=== PATIENT | male | born 1960 | race Caucasian/White ===

== ENCOUNTER 2021-11-29 14:19 | Inpatient (IN) | payer OTHER ==
[2021-11-29] MEDS ORDERED: SODIUM CHLORIDE 0.9% 1,000 ML IV STA (14:40)
--- NOTE | 2021-11-29 15:04 | XR ---
EXAMINATION TYPE: XR chest 1V portable DATE OF EXAM: 11/29/2021 COMPARISON: NONE HISTORY: Weakness TECHNIQUE: Single frontal view of the chest is obtained. FINDINGS: Heart size normal and there is an elevated left hemidiaphragm. No overt failure or pneumot horax. Abnormal subsegmental changes at the left lung base. IMPRESSION: Left basilar compression atelectasis favored secondary to left hemidiaphragm elevation. Correlate clinically to exclude pneumonia.
--- NOTE | 2021-11-29 15:34 | ED ---
Dizziness HPI - General Chief Complaint: Dizziness Stated Complaint: Hypertension/Dizziness Time Seen by Provider: 11/29/21 14:36 Source: patient, EMS Mode of arrival: EMS Limitations: no limitations - History of Present Illness Initial Comments: Patient complains of lightheadedness. His symptoms are worse if he stands up. He is not complaining of any chest pain or pressure or tightness. He currently has no nausea or vomiting. He has no focal weakness. He has no neck pain or stiffness. He has no headache. He has taken no medicines for this. He wasn't doing anything when this began. - Related Data Allergies Allergy/AdvReac Type Severity Reaction Status Date / Time No Known Allergies Allergy Verified 11/29/21 14:37 Review of Systems ROS Statement: Those systems with pertinent positive or pertinent negative responses have been documented in the HPI. ROS Other: All systems not noted in ROS Statement are negative. Past Medical History Past Medical History: COPD, Hypertension, Prostate Disorder History of Any Multi-Drug Resistant Organisms: None Reported Past Surgical History: Hernia Repair Additional Past Surgical History / Comment(s): galladder Past Psychological History: Depression Smoking Status: Current every day smoker Past Alcohol Use History: None Reported Past Drug Use History: Marijuana General Exam Limitations: no limitations General appearance: alert, in no apparent distress Head exam: Present: atraumatic, normocephalic, normal inspection Eye exam: Present: normal appearance, PERRL, EOMI. Absent: scleral icterus, conjunctival injection, periorbital swelling ENT exam: Present: normal exam, mucous membranes moist Neck exam: Present: normal inspection. Absent: tenderness, meningismus, lymphadenopathy Respiratory exam: Present: normal lung sounds bilaterally. Absent: respiratory distress, wheezes, rales, rhonchi, stridor Cardiovascular Exam: Present: tachycardia, normal heart sounds. Absent: systolic murmur, diastolic murmur, rubs, gallop, clicks GI/Abdominal exam: Present: soft, normal bowel sounds. Absent: distended, tenderness, guarding, rebound, rigid Extremities exam: Present: normal inspection, full ROM, normal capillary refill. Absent: tenderness, pedal edema, joint swelling, calf tenderness Back exam: Present: normal inspection Neurological exam: Present: alert, oriented X3, CN II-XII intact Psychiatric exam: Present: normal affect, normal mood Skin exam: Present: warm, dry, intact, normal color. Absent: rash Course Vital Signs 11/29/21 11/29/21 11/29/21 14:23 15:48 16:00 Temperature 98.4 F Pulse Rate 97 117 H Respiratory 18 21 Rate Blood Pressure 100/67 90/61 O2 Sat by Pulse 100 95 96 Oximetry 11/29/21 11/29/21 17:00 18:00 Temperature Pulse Rate 93 115 H Respiratory 15 16 Rate Blood Pressure 111/74 104/77 O2 Sat by Pulse 95 95 Oximetry EKG Findings - EKG Comments: EKG Findings:: Twelve-lead EKG shows ventricular rate 107 bpm, no P waves, normal QRSs, no ST elevation or depression, interpreted by me as atrial fi brillation. Medical Decision Making - Medical Decision Making Patient presents with lightheadedness. He has what appears to be new onset atrial fibrillation. He will be admitted to the hospital. - Lab Data Result diagrams: 11/29/21 14:59 11/29/21 14:59 Lab Results 11/29/21 11/29/21 11/29/21 Range/Units 14:59 14:59 14:59 WBC 3.2 L (3.8-10.6) k/uL RBC 3.56 L (4.30-5.90) m/uL Hgb 9.9 L (13.0-17.5) gm/dL Hct 33.1 L (39.0-53.0) % MCV 92.8 (80.0-100.0) fL MCH 27.8 (25.0-35.0) pg MCHC 29.9 L (31.0-37.0) g/dL RDW 24.7 H (11.5-15.5) % Plt Count 271 (150-450) k/uL MPV 8.4 Neutrophils % (Manual) 54 % Lymphocytes % (Manual) 34 % Monocytes % (Manual) 9 % Eosinophils % (Manual) 1 % Basophils % (Manual) 2 % Neutrophils # (Manual) 1.73 (1.3-7.7) k/uL Lymphocytes # (Manual) 1.09 (1.0-4.8) k/uL Monocytes # (Manual) 0.29 (0-1.0) k/uL Eosinophils # (Manual) 0.03 (0-0.7) k/uL Basophils # (Manual) 0.06 (0-0.2) k/uL Nucleated RBCs 0 (0-0) /100 WBC Manual Slide Review Performed Polychromasia Present Hypochromasia Marked Anisocytosis Marked Microcytosis Slight Macrocytosis Slight Ovalocytes Present PT (9.0-12.0) sec INR (<1.2) APTT (22.0-30.0) sec Sodium 136 L (137-145) mmol/L Potassium 4.4 (3.5-5.1) mmol/L Chloride 106 (98-107) mmol/L Carbon Dioxide 25 (22-30) mmol/L Anion Gap 5 mmol/L BUN 12 (9-20) mg/dL Creatinine 0.90 (0.66-1.25) mg/dL Est GFR (CKD-EPI)AfAm >90 (>60 ml/min/1.73 sqM) Est GFR (CKD-EPI)NonAf >90 (>60 ml/min/1.73 sqM) Glucose 86 (74-99) mg/dL Calcium 8.5 (8.4-10.2) mg/dL Magnesium (1.6-2.3) mg/dL Total Bilirubin 0.1 L (0.2-1.3) mg/dL AST 20 (17-59) U/L ALT 11 (4-49) U/L Alkaline Phosphatase 57 (38-126) U/L Troponin I (0.000-0.034) ng/mL Total Protein 5.6 L (6.3-8.2) g/dL Albumin 3.5 (3.5-5.0) g/dL Urine Color Dark Yellow Urine Appearance Clear (Clear) Urine pH 6.0 (5.0-8.0) Ur Specific Mullins 1.035 (1.001-1.035) Urine Protein 1+ H (Negative) Ur Protein Confirm Not Reportable Urine Glucose (UA) Negative (Negative) Urine Ketones Trace H (Negative) Urine Blood Negative (Negative) Urine Nitrite Negative (Negative) Urine Bilirubin 1+ H (Negative) Ur Bilirubin Confirm Not Reportable Urine Urobilinogen 4.0 (<2.0) mg/dL Ur Leukocyte Esterase Small H (Negative) Urine RBC 1 (0-5) /hpf Urine WBC 3 (0-5) /hpf Ur Squamous Epith Cells 2 (0-4) /hpf Urine Bacteria Occasional H (None) /hpf Hyaline Casts 35 H (0-2) /lpf Urine Mucus Few H (None) /hpf 11/29/21 11/29/21 11/29/21 Range/Units 14:59 16:54 16:54 WBC (3.8-10.6) k/uL RBC (4.30-5.90) m/uL Hgb (13.0-17.5) gm/dL Hct (39.0-53.0) % MCV (80.0-100.0) fL MCH (25.0-35.0) pg MCHC (31.0-37.0) g/dL RDW (11.5-15.5) % Plt Count (150-450) k/uL MPV Neutrophils % (Manual) % Lymphocytes % (Manual) % Monocytes % (Manual) % Eosinophils % (Manual) % Basophils % (Manual) % Neutrophils # (Manual) (1.3-7.7) k/uL Lymphocytes # (Manual) (1.0-4.8) k/uL Monocytes # (Manual) (0-1.0) k/uL Eosinophils # (Manual) (0-0.7) k/uL Basophils # (Manual) (0-0.2) k/uL Nucleated RBCs (0-0) /100 WBC Manual Slide Review Polychromasia Hypochromasia Anisocytosis Microcytosis Macrocytosis Ovalocytes PT (9.0-12.0) sec INR (<1.2) APTT (22.0-30.0) sec Sodium (137-145) mmol/L Potassium (3.5-5.1) mmol/L Chloride (98-107) mmol/L Carbon Dioxide (22-30) mmol/L Anion Gap mmol/L BUN (9-20) mg/dL Creatinine (0.66-1.25) mg/dL Est GFR (CKD-EPI)AfAm (>60 ml/min/1.73 sqM) Est GFR (CKD-EPI)NonAf (>60 ml/min/1.73 sqM) Glucose (74-99) mg/dL Calcium (8.4-10.2) mg/dL Magnesium 1.9 (1.6-2.3) mg/dL Total Bilirubin (0.2-1.3) mg/dL AST (17-59) U/L ALT (4-49) U/L Alkaline Phosphatase (38-126) U/L Troponin I <0.012 <0.012 (0.000-0.034) ng/mL Total Protein (6.3-8.2) g/dL Albumin (3.5-5.0) g/dL Urine Color Urine Appearance (Clear) Urine pH (5.0-8.0) Ur Specific Mullins (1.001-1.035) Urine Protein (Negative) Ur Protein Confirm Urine Glucose (UA) (Negative) Urine Ketones (Negative) Urine Blood (Negative) Urine Nitrite (Negative) Urine Bilirubin (Negative) Ur Bilirubin Confirm Urine Urobilinogen (<2.0) mg/dL Ur Leukocyte Esterase (Negative) Urine RBC (0-5) /hpf Urine WBC (0-5) /hpf Ur Squamous Epith Cells (0-4) /hpf Urine Bacteria (None) /hpf Hyaline Casts (0-2) /lpf Urine Mucus (None) /hpf // Range/Units 16:54 WBC (3.8-10.6) k/uL RBC (4.30-5.90) m/uL Hgb (13.0-17.5) gm/dL Hct (39.0-53.0) % MCV (80.0-100.0) fL MCH (25.0-35.0) pg MCHC (31.0-37.0) g/dL RDW (11.5-15.5) % Plt Count (150-450) k/uL MPV Neutrophils % (Manual) % Lymphocytes % (Manual) % Monocytes % (Manual) % Eosinophils % (Manual) % Basophils % (Manual) % Neutrophils # (Manual) (1.3-7.7) k/uL Lymphocytes # (Manual) (1.0-4.8) k/uL Monocytes # (Manual) (0-1.0) k/uL Eosinophils # (Manual) (0-0.7) k/uL Basophils # (Manual) (0-0.2) k/uL Nucleated RBCs (0-0) /100 WBC Manual Slide Review Polychromasia Hypochromasia Anisocytosis Microcytosis Macrocytosis Ovalocytes PT 10.1 (9.0-12.0) sec INR 0.9 (<1.2) APTT 23.4 (22.0-30.0) sec Sodium (137-145) mmol/L Potassium (3.5-5.1) mmol/L Chloride (98-107) mmol/L Carbon Dioxide (22-30) mmol/L Anion Gap mmol/L BUN (9-20) mg/dL Creatinine (0.66-1.25) mg/dL Est GFR (CKD-EPI)AfAm (>60 ml/min/1.73 sqM) Est GFR (CKD-EPI)NonAf (>60 ml/min/1.73 sqM) Glucose (74-99) mg/dL Calcium (8.4-10.2) mg/dL Magnesium (1.6-2.3) mg/dL Total Bilirubin (0.2-1.3) mg/dL AST (17-59) U/L ALT (4-49) U/L Alkaline Phosphatase (38-126) U/L Troponin I (0.000-0.034) ng/mL Total Protein (6.3-8.2) g/dL Albumin (3.5-5.0) g/dL Urine Color Urine Appearance (Clear) Urine pH (5.0-8.0) Ur Specific Mullins (1.001-1.035) Urine Protein (Negative) Ur Protein Confirm Urine Glucose (UA) (Negative) Urine Ketones (Negative) Urine Blood (Negative) Urine Nitrite (Negative) Urine Bilirubin (Negative) Ur Bilirubin Confirm Urine Urobilinogen (<2.0) mg/dL Ur Leukocyte Esterase (Negative) Urine RBC (0-5) /hpf Urine WBC (0-5) /hpf Ur Squamous Epith Cells (0-4) /hpf Urine Bacteria (None) /hpf Hyaline Casts (0-2) /lpf Urine Mucus (None) /hpf Disposition Clinical Impression: Syncope, Atrial fibrillation Disposition: ADMITTED IP TO THIS HOSP Condition: Fair Is patient prescribed a controlled substance at d/c from ED?: No Referrals: Nonstaff,Physician [Primary Care Provider] - 1-2 days
[2021-11-29 15:44] LABS: ALT 11 U/L (4-49); AST 20 U/L (17-59); African American GFR (CKD) >90 (>60 ml/min/1.73 sqM); Albumin 3.5 g/dL (3.5-5.0); Alkaline Phosphatase 57 U/L (38-126); Anion Gap 5 mmol/L; Blood Urea Nitrogen 12 mg/dL (9-20); Calcium 8.5 mg/dL (8.4-10.2); Carbon Dioxide 25 mmol/L (22-30); Chloride 106 mmol/L (98-107); Glucose 86 mg/dL (74-99); Non-African American GFR(CKD) >90 (>60 ml/min/1.73 sqM); Potassium 4.4 mmol/L (3.5-5.1); Sodium 136 mmol/L (137-145); Total Bilirubin 0.1 mg/dL (0.2-1.3); Total Protein 5.6 g/dL (6.3-8.2)
[2021-11-29 16:19] LABS: Bacteria,Urine Occasional /hpf; Hyaline Casts,Urine 35 /lpf (0-2); Mucus,Urine Few /hpf; RBC,Urine 1 /hpf (0-5); Squamous Epithelial Cell,Urine 2 /hpf (0-4); WBC,Urine 3 /hpf (0-5)
[2021-11-29 16:24] LABS: Anisocytosis Marked; HCT 33.1 % (39.0-53.0); HGB 9.9 gm/dL (13.0-17.5); Hypochromasia Marked; MCH 27.8 pg (25.0-35.0); MCHC 29.9 g/dL (31.0-37.0); MCV 92.8 fL (80.0-100.0); Macrocytosis Slight; Mean Platelet Volume 8.4; Microcytosis Slight; Platelet Count 271 k/uL (150-450); RBC 3.56 m/uL (4.30-5.90); RDW 24.7 % (11.5-15.5); WBC 3.2 k/uL (3.8-10.6)
[2021-11-29 17:14] LABS: Appearance,Urine Clear (Clear); Bilirubin,Urine 1+ (Negative); Blood,Urine Negative (Negative); Color,Urine Dark Yellow; Glucose,Urine (UA) Negative (Negative); Ketones,Urine Trace (Negative); Leukocyte Esterase,Urine Small (Negative); Nitrite,Urine Negative (Negative); Protein,Urine 1+ (Negative); Specific Gravity,Urine 1.035 (1.001-1.035)
[2021-11-29 17:25] LABS: Basophils # (M) 0.06 k/uL (0-0.2); Eosinophils # (M) 0.03 k/uL (0-0.7); Lymphocytes # (M) 1.09 k/uL (1.0-4.8); Monocytes # (M) 0.29 k/uL (0-1.0); Neutrophils # (M) 1.73 k/uL (1.3-7.7); Neutrophils % (M) 54 %; Nucleated Red Blood Cells 0 /100 WBC (0-0); Total Cells Counted 100
[2021-11-29 17:26] LABS: INR 0.9 (<1.2); Partial Thromboplastin Time 23.4 sec (22.0-30.0); Prothrombin Time 10.1 sec (9.0-12.0)
[2021-11-29 17:26] LABS: Ovalocytes Present; Polychromasia Present
[2021-11-29] MEDS ORDERED: LIDOCAINE 5% PATCH TOPICAL STA (18:07)
[2021-11-29] MEDS ORDERED: TEMAZEPAM 15 MG CAP PO PRN (19:04)
[2021-11-29] MEDS ORDERED: MAG HYDROX/AL HYDROX/SIMETH 30 ML CUP PO PRN (19:04)
[2021-11-29] MEDS ORDERED: NALOXONE 0.4 MG/ML 1 ML VIAL IV PRN (19:04)
[2021-11-29] MEDS ORDERED: ONDANSETRON 4 MG/2 ML VIAL IVP PRN (19:04)
[2021-11-29] MEDS ORDERED: LORazepam 0.5 MG TAB PO PRN (19:04)
[2021-11-29] MEDS ORDERED: HEPARIN SODIUM 1,000 UN/ML (10ML VL) IV ONE (23:20)
[2021-11-29] MEDS ORDERED: HEPARIN SODIUM 1,000 UN/ML (10ML VL) IV PRN (23:20)
[2021-11-29] MEDS ORDERED: HEPARIN SOD,PORK IN 0.45% NACL 25,000 UNIT in 0.45% NACL 1 250ML.BAG IV SCH (23:30)
[2021-11-29] MEDS ORDERED: DILTIAZEM 125 MG in SODIUM CHLORIDE 0.9% 100 ML IV SCH (23:45)
[2021-11-29] MEDS ORDERED: DILTIAZEM 5 MG/ML 5 ML VIAL IVP STA (23:45)
--- NOTE | 2021-11-29 23:50 | P.HPIM ---
History of Present Illness H&P Date: 11/29/21 The patient is a 61-year-old male with a PMH of hypertension, hyperlipidemia, BPH, and EtOH abuse who was sent to the emergency room from [facility] for near syncope and palpitations. The patient reports that he has been admitted to [facility] for nearly 10 days for alcohol detox. He reports doing well and in his usual state of health until lunch this afternoon when he suddenly developed applications and lightheadedness. He reports being taken to the facility's RN who checked his blood pressure which was noted to be very low. He was subsequently brought to the emergency room. He reports that he never lost consciousness. Denied experiencing chest discomfort, nausea, vomiting, shortn ess of breath, diaphoresis, abdominal pain, diarrhea. EKG in the emergency room revealed A. fib with RVR at 107 bpm with chest x-ray showing left basilar atelectasis. Laboratory evaluation was remarkable for WBC count 3.2, hemoglobin 9.9, troponin less than 0.012. The patient denies prior history of A. fib or any other arrhythmias. He also denies any additional heart disease history. Review of systems: Pertinent positives and negatives as discussed in HPI, a complete review of systems was performed and all other systems are negative. Physical examination: General: non toxic, no distress, appears at stated age, overweight Derm: no unusual rashes/lesions, warm Head: atraumatic, normocephalic, symmetric Eyes: EOMI, no lid lag, anicteric sclera, pupils equal round reactive to light ENT: Nose and ears atraumatic Neck: No cervical lymphadenopathy, trachea midline, supple Mouth: no lip lesion, mucus membranes moist Cardiovascular: Irregularly irregular, no murmur, positive dorsalis pedis pulse bilateral, 2+ bilateral lower extremity pitting edema Lungs: CTA bilateral, no rhonchi, no rales, no accessory muscle use Abdominal: soft, nontender to palpation, no guarding Ext: muscle strength 5 out of 5 in all 4 extremities grossly, no gross muscle atrophy, no contractures, Neuro: CN II-XI grossly intact, no gross focal neuro deficits Psych: Alert, oriented, appropriate affect Assessment/plan Near syncope, likely secondary to newly diagnosed A. fib with RVR -Started low intensity heparin infusion -Cardiology consulted -Cardiac monitoring -Cardizem infusion -Echocardiogram Bicytopenia, likely secondary to ongoing EtOH abuse -Monitor for now with no baseline available for comparison DVT prophylaxis -Heparin infusion The patient is admitted with an anticipated less than 2 midnight stay for evaluation of A. fib. CODE STATUS: Full Code Discussed with: Patient Anticipated discharge date: In a.m. Anticipated discharge place: [facility] Past Medical History Past Medical History: COPD, Hypertension, Prostate Disorder History of Any Multi-Drug Resistant Organisms: None Reported Past Surgical History: Hernia Repair Additional Past Surgical History / Comment(s): galladder Past Psychological History: Depression Smoking Status: Current every day smoker Past Alcohol Use History: None Reported Past Drug Use History: Marijuana - Past Family History Father Family Medical History: COPD Medications and Allergies Home Medications Medication Instructions Recorded Confirmed Type Acetaminophen [Tylenol 8 Hour] 650 mg PO Q4H PRN 11/29/21 11/29/21 History Aspirin 81 mg PO DAILY 11/29/21 11/29/21 History Atorvastatin [Lipitor] 20 mg PO DAILY 11/29/21 11/29/21 History Calcium, Magnesium, Zinc, With 1 tab PO TID PRN 11/29/21 11/29/21 History Vitamin D DULoxetine HCL [Cymbalta] 30 mg PO DAILY 11/29/21 11/29/21 History Ibuprofen [Motrin Ib] 600 mg PO Q6H PRN 11/29/21 11/29/21 History Loperamide HCl [Imodium A-D] 4 mg PO QID PRN 11/29/21 11/29/21 History Metoprolol Tartrate [Lopressor] 25 mg PO BID 11/29/21 11/29/21 History Multivitamins, Thera [Multivitamin 1 tab PO DAILY 11/29/21 11/29/21 History (formulary)] Nitroglycerin Sl Tabs [Nitrostat] 0.4 mg SUBLINGUAL Q5M PRN 11/29/21 11/29/21 History Omeprazole 40 mg PO DAILY 11/29/21 11/29/21 History Tamsulosin HCl [Flomax] 0.4 mg PO DAILY 11/29/21 11/29/21 History Thiamine [Vitamin B-1] 100 mg PO DAILY 11/29/21 11/29/21 History Zofran (Unknown Dose) 1 dose PO Q6H PRN 11/29/21 11/29/21 History amLODIPine [Norvasc] 5 mg PO DAILY 11/29/21 11/29/21 History lisinopriL [Zestril] 20 mg PO DAILY 11/29/21 11/29/21 History Allergies Allergy/AdvReac Type Severity Reaction Status Date / Time No Known Allergies Allergy Verified 11/29/21 20:06 Physical Exam Vitals: Vital Signs Temp Pulse Resp BP Pulse Ox 11/29/21 20:55 130 H 18 97 11/29/21 18:00 115 H 16 104/77 95 11/29/21 17:00 93 15 111/74 95 11/29/21 16:00 117 H 21 90/61 96 11/29/21 15:48 95 11/29/21 14:23 98.4 F 97 18 100/67 100 Intake and Output 11/29/21 11/29/21 11/30/21 14:59 22:59 06:59 Other: Weight 96.615 kg Results CBC & Chem 7: 11/29/21 14:59 11/29/21 14:59 Labs: Abnormal Lab Results - Last 24 Hours (Table) 11/29/21 11/29/21 11/29/21 Range/Units 14:59 14:59 14:59 WBC 3.2 L (3.8-10.6) k/uL RBC 3.56 L (4.30-5.90) m/uL Hgb 9.9 L (13.0-17.5) gm/dL Hct 33.1 L (39.0-53.0) % MCHC 29.9 L (31.0-37.0) g/dL RDW 24.7 H (11.5-15.5) % Sodium 136 L (137-145) mmol/L Total Bilirubin 0.1 L (0.2-1.3) mg/dL Total Protein 5.6 L (6.3-8.2) g/dL Urine Protein 1+ H (Negative) Urine Ketones Trace H (Negative) Urine Bilirubin 1+ H (Negative) Ur Leukocyte Esterase Small H (Negative) Urine Bacteria Occasional H (None) /hpf Hyaline Casts 35 H (0-2) /lpf Urine Mucus Few H (None) /hpf
[2021-11-30] MEDS ORDERED: MORPHINE SULFATE 4 MG/ML SYRINGE IVP STA (03:39)
[2021-11-30] MEDS ORDERED: MORPHINE SULFATE 4 MG/ML SYRINGE IV PRN (03:39)
[2021-11-30 06:53] LABS: Anisocytosis Marked; Basophils % (A) 1 %; Eosinophils # (A) 0.1 k/uL (0-0.7); Eosinophils % (A) 3 %; HCT 34.3 % (39.0-53.0); HGB 10.1 gm/dL (13.0-17.5); Hypochromasia Marked; Lymphocytes # (A) 1.3 k/uL (1.0-4.8); Lymphocytes % (A) 37 %; MCH 27.8 pg (25.0-35.0); MCHC 29.6 g/dL (31.0-37.0); MCV 94.2 fL (80.0-100.0); Macrocytosis Moderate; Mean Platelet Volume 8.1; Microcytosis Slight; Monocytes # (A) 0.2 k/uL (0-1.0); Monocytes % (A) 6 %; Neutrophils # (A) 1.8 k/uL (1.3-7.7); Neutrophils % (A) 50 %; Platelet Count 242 k/uL (150-450); RBC 3.64 m/uL (4.30-5.90); RDW 24.3 % (11.5-15.5); WBC 3.6 k/uL (3.8-10.6)
[2021-11-30 07:20] LABS: INR 0.9 (<1.2); Prothrombin Time 10.3 sec (9.0-12.0)
[2021-11-30 07:21] LABS: Partial Thromboplastin Time 33.2 sec (22.0-30.0)
[2021-11-30] MEDS ORDERED: METOPROLOL TARTRATE 25 MG TAB PO SCH (09:00)
[2021-11-30] MEDS ORDERED: amLODIPine 5 MG TAB PO SCH (09:00)
[2021-11-30] MEDS ORDERED: lisinopriL 20 MG TAB PO SCH (09:00)
[2021-11-30] MEDS: TAMSULOSIN 0.4 MG CAP.ER.24H PO SCH (09:30)
[2021-11-30] MEDS: THIAMINE 100 MG TAB PO SCH ×2 (09:30→09:31)
[2021-11-30] MEDS: DULoxetine HCL 30 MG CAPSULE.DR PO SCH (09:31)
[2021-11-30] MEDS: ASPIRIN 81 MG PO SCH (09:31)
[2021-11-30] MEDS: ATORVASTATIN 20 MG TAB PO SCH (09:31)
[2021-11-30] MEDS: MULTIVITAMINS, THERA 1 EACH TAB PO SCH (09:32)
--- NOTE | 2021-11-30 11:39 | CA ---
Transthoracic Echo Report Name: Anthony Robles Age: 61 Gender: M : 1960 Exam Date: 11/30/2021 08:19 Exam Location: [facility] Ht (in): 72 Wt (lb): 213 Ordering Physician: Stephani Blanco MD Attending/Referring Phys: Transfer Specialist Miguelina Paz RDCS Procedure CPT: Indications: afib Cardiac Hx: Technical Quality: Good Contrast 1: Lumason Total Dose (mL): 3 Contrast 2: Total Dose (mL): MEASUREMENTS (Male / Female) Normal Values 2D ECHO LV Diastolic Diameter PLAX 4.5 cm 4.2 - 5.9 / 3.9 - 5.3 cm LV Systolic Diameter PLAX 3.9 cm IVS Diastolic Thickness 1.1 cm 0.6 - 1.0 / 0.6 - 0.9 cm LVPW Diastolic Thickness 1.7 cm 0.6 - 1.0 / 0.6 - 0.9 cm LV Relative Wall Thickness 0.6 RV Internal Dim ED PLAX 3.5 cm LA Systolic Diameter LX 4.2 cm 3.0 - 4.0 / 2.7 - 3.8 cm M-MODE Aortic Root Diameter MM 3.9 cm LA Systolic Diameter MM 4.3 cm LA Ao Ratio MM 1.1 MV E Point Septal Separation 0.7 cm AV Cusp Separation MM 2.1 cm FINDINGS Left Ventricle Normal Left ventricular size, wall thickness, systolic function with no obvious regional wall motion abnormalities. Left ventricular ejection fraction is estimated at 50-50%. Right Ventricle Normal right ventricular size and function. Right Atrium Normal right atrial size. Left Atrium Mildly increased left atrial diameter. Mitral Valve Structurally normal mitral valve. Mild mitral regurgitation. Aortic Valve Trileaflet aortic valve. Tricuspid Valve Structurally normal tricuspid valve. Mild tricuspid regurgitation. Pulmonic Valve Structurally normal pulmonic valve. Pericardium Normal pericardium. Aorta Normal size aortic root and proximal ascending aorta. CONCLUSIONS Normal LV size and systolic function Previewed by: Dr. Sean Mcpherson MD (Electronically Signed) Final Date: 30 November 2021 11:38
[2021-11-30] MEDS: HYDROmorphone 1 MG/ML 1 ML SYRINGE IVP PRN ×2 (11:41→16:39)
--- NOTE | 2021-11-30 13:14 | P.PN ---
Subjective Progress Note Date: 11/30/21 Hospital course: Patient is a very pleasant 61-year-old male with a past medical history of hypertension, hyperlipidemia, BPH, and EtOH abuse. Patient presented to the emergency department with a chief complaint of dizziness/lightheadedness and near syncopal episode while at [place]. patient reports he is currently is [place] secondary to EtOH abuse and states last alcoholic drink was 12 days ago. Upon arrival patient was found to be in new onset atrial fibrillation with RVR in 130's-140's. EKG was completed and revealed atrial fibrillation with RVR at 107 bpm. Chest x-ray negative for acute cardiopulmonary process revealing left basilar compression atelectasis favored to be secondary to hemidiaphragm elevation.CBC leukopenia with WBC count of 3.2, and normocytic normochromic anemia with hemoglobin of 9.9. Troponin was negative at less than 0.0124 draws. TSH was normal findings at 1.670. Urinalysis was negative for infection. Patient was started on heparin infusion Physical exam: Patient seen and fully evaluated at bedside this morning. Patient remains in atrial fibrillation currently rate is controlled ranging from 70s to 110's. patient otherwise denies having any complaints at this time reporting dizziness/lightheadedness has resolved and he denies having any chest pain, palpitations, shortness of breath, or experiencing any numbness/tinglin g/weakness in his extremities. Morning labs reviewed showing no significant changes or abnormalities. Vital signs reviewed and stable. General: Nontoxic, no distress and appears stated age. Derm: Skin warm and dry, normal coloration for ethnicity. Head: Atraumatic, normocephalic and symmetric. Eyes: EOMs intact, no lid lag, and anicteric sclera Mouth: no lip lesions, mucus membranes moist Cardiovascular: regular rate and rhythm with normal S1S2, no murmur, positive posterior tibial pulses bilaterally, and cap refill < 2 seconds. Lungs: Respirations even, regular, and unlabored on room air. Lungs CTA bilaterally, no rhonchi, no rales, no wheezing, and no accessory muscle usage. Abdominal: soft, nontender to palpation, no guarding, no appreciable organomegaly Ext: ROM intact. No gross muscle atrophy, no edema, no contractures Neuro: Speech clear, face symmetrical and CN II-XII grossly intact with no noted focal neuro deficits Psych: Alert and oriented to person, place, time, and situation. Appropriate and pleasant affect. Assessment and Plan of Care: Dizziness/lightheadedness with reports of near syncopal episode, likely secondary to newly diagnosed A. fib with RVR -Started low intensity heparin infusion -Cardiology consulted -Cardiac monitoring -Cardizem infusion -Echocardiogram Bicytopenia, likely secondary to ongoing EtOH abuse -Monitor for now with no baseline available for comparison Hypertension monitor vital signs and continue daily medication regimen with amlodipine, lisinopril, and metoprolol. Hyperlipidemia Continue daily medication regimen with atorvastatin. BPH Continue daily medication regimen with Flomax CODE STATUS:full code DVT prophylaxis: heparin infusion Discussed with: patient and RN Anticipated discharge date: likely tomorrow Anticipated discharge place: return to [facility] A total of 33 minutes was spent on the care of this complex patient more than 50% of the time was spent in counseling and care coordination. Objective - Vital Signs Vital signs: Vital Signs Temp 98.4 F 11/29/21 14:23 Pulse 73 11/30/21 11:44 Resp 16 11/30/21 11:44 BP 110/68 11/30/21 11:44 Pulse Ox 99 11/30/21 11:44 FiO2 Intake & Output 11/29/21 11/30/21 11/30/21 18:59 06:59 18:59 Weight 96.615 kg - Labs CBC & Chem 7: 11/30/21 06:13 11/29/21 14:59 Labs: Abnormal Lab Results - Last 24 Hours (Table) 11/29/21 11/29/21 11/29/21 Range/Units 14:59 14:59 14:59 WBC 3.2 L (3.8-10.6) k/uL RBC 3.56 L (4.30-5.90) m/uL Hgb 9.9 L (13.0-17.5) gm/dL Hct 33.1 L (39.0-53.0) % MCHC 29.9 L (31.0-37.0) g/dL RDW 24.7 H (11.5-15.5) % APTT (22.0-30.0) sec Sodium 136 L (137-145) mmol/L Total Bilirubin 0.1 L (0.2-1.3) mg/dL Total Protein 5.6 L (6.3-8.2) g/dL Urine Protein 1+ H (Negative) Urine Ketones Trace H (Negative) Urine Bilirubin 1+ H (Negative) Ur Leukocyte Esterase Small H (Negative) Urine Bacteria Occasional H (None) /hpf Hyaline Casts 35 H (0-2) /lpf Urine Mucus Few H (None) /hpf 11/30/21 11/30/21 Range/Units 06:13 06:13 WBC 3.6 L (3.8-10.6) k/uL RBC 3.64 L (4.30-5.90) m/uL Hgb 10.1 L (13.0-17.5) gm/dL Hct 34.3 L (39.0-53.0) % MCHC 29.6 L (31.0-37.0) g/dL RDW 24.3 H (11.5-15.5) % APTT 33.2 H (22.0-30.0) sec Sodium (137-145) mmol/L Total Bilirubin (0.2-1.3) mg/dL Total Protein (6.3-8.2) g/dL Urine Protein (Negative) Urine Ketones (Negative) Urine Bilirubin (Negative) Ur Leukocyte Esterase (Negative) Urine Bacteria (None) /hpf Hyaline Casts (0-2) /lpf Urine Mucus (None) /hpf
--- NOTE | 2021-11-30 14:02 | P.CRDCN ---
History of Present Illness Consult date: 11/30/21 History of present illness: HISTORY OF PRESENT ILLNESS: This is a 61-year-old male with a past medical history significant for hypertension, hyperlipidemia, BPH, and alcohol abuse. 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 We have been asked to see the patient in consultation for atrial fibrillation. Patient examined at the bedside in the emergency room. The patient is currently at [place] for alcohol abuse. He was brought to the ospital secondary to palpitations and dizziness. The patient was found to be in A. fib with RVR. The patient denies a history of atrial fibrillation. The patient was started on IV heparin and IV Cardizem. * EKG reveals atrial fibrillation with mild RVR * Chest xray left basilar compression atelectasis favored secondary to left hemidiaphragm elevation. Correlate clinically to exclude pneumonia. * Laboratory data: WBC 3.6. Hemoglobin 10.1. Platelet count 242. Sodium 136. Potassium 4.4. BUN 12. Creatinine 0.90. Troponin negative 4. TSH 1.670. * Current home cardiac medications include metoprolol tartrate 25 mg twice a day, lisinopril 20 mg daily, aspirin 81 mg daily, Lipitor 20 mg daily, amlodipine 5 mg daily * Echocardiogram completed revealing ejection fraction 50-55%, mild MR, mild TR REVIEW OF SYSTEMS: At the time of my exam: CONSTITUTIONAL: Denies fever or chills. HEENT: Denies blurred vision, vision changes, or eye pain. Denies hemoptysis CARDIOVASCULAR: Denies chest pain. Denies orthopnea. Denies PND. Denies palpitations RESPIRATORY: Denies shortness of breath. GASTROINTESTINAL: Denies abdominal pain. Denies nausea or vomiting. HEMATOLOGIC: Denies bleeding disorders. GENITOURINARY: Denies any blood in urine. SKIN: Denies pruitis. Denies rash. PHYSICAL EXAM: VITAL SIGNS: Reviewed. GENERAL: Well-developed in no acute distress. HEENT: Head is normocephalic. Pupils are equal, round. Sclerae anicteric. Mucous membranes of the mouth are moist. Neck supple. No JVD or thyromegaly LUNGS: Respirations even and unlabored. Lungs essentially clear to auscultation bilaterally. HEART: Irregular rate and rhythm. S1 and S2 heard. ABDOMEN: Soft. Nondistended. Nontender. EXTREMITIES: Normal range of motion. No clubbing or cyanosis. Peripheral pulses intact. Trace lower extremity edema NEUROLOGIC: Awake and alert. Oriented x 3. ASSESSMENT: Palpitations New onset atrial fibrillation with RVR Hypertension Hyperlipidemia History of alcohol abuse PLAN: 2-D echo obtained and reviewed TSH within normal limits Discontinue IV Cardizem Resume home cardiac medications Increase metoprolol to 25 mg twice a day Discontinue IV heparin Begin Eliquis 5 mg twice a day Further recommendations pending patient's course Nurse practitioner note has been reviewed by physician. Signing provider agrees with the documented findings, assessment, and plan of care. Past Medical History Past Medical History: COPD, Hypertension, Prostate Disorder History of Any Multi-Drug Resistant Organisms: None Reported Past Surgical History: Hernia Repair Additional Past Surgical History / Comment(s): galladder Past Psychological History: Depression Smoking Status: Current every day smoker Past Alcohol Use History: None Reported Past Drug Use History: Marijuana - Past Family History Father Family Medical History: COPD Medications and Allergies Home Medications Medication Instructions Recorded Confirmed Type Acetaminophen [Tylenol 8 Hour] 650 mg PO Q4H PRN 11/29/21 11/29/21 History Aspirin 81 mg PO DAILY 11/29/21 11/29/21 History Atorvastatin [Lipitor] 20 mg PO DAILY 11/29/21 11/29/21 History Calcium, Magnesium, Zinc, With 1 tab PO TID PRN 11/29/21 11/29/21 History Vitamin D DULoxetine HCL [Cymbalta] 30 mg PO DAILY 11/29/21 11/29/21 History Ibuprofen [Motrin Ib] 600 mg PO Q6H PRN 11/29/21 11/29/21 History Loperamide HCl [Imodium A-D] 4 mg PO QID PRN 11/29/21 11/29/21 History Metoprolol Tartrate [Lopressor] 25 mg PO BID 11/29/21 11/29/21 History Multivitamins, Thera [Multivitamin 1 tab PO DAILY 11/29/21 11/29/21 History (formulary)] Nitroglycerin Sl Tabs [Nitrostat] 0.4 mg SUBLINGUAL Q5M PRN 11/29/21 11/29/21 History Omeprazole 40 mg PO DAILY 11/29/21 11/29/21 History Tamsulosin HCl [Flomax] 0.4 mg PO DAILY 11/29/21 11/29/21 History Thiamine [Vitamin B-1] 100 mg PO DAILY 11/29/21 11/29/21 History Zofran (Unknown Dose) 1 dose PO Q6H PRN 11/29/21 11/29/21 History amLODIPine [Norvasc] 5 mg PO DAILY 11/29/21 11/29/21 History lisinopriL [Zestril] 20 mg PO DAILY 11/29/21 11/29/21 History Allergies Allergy/AdvReac Type Severity Reaction Status Date / Time No Known Allergies Allergy Verified 11/29/21 20:06 Physical Exam Vitals: Vital Signs Temp Pulse Resp BP Pulse Ox 11/30/21 11:44 73 16 110/68 99 11/30/21 02:00 93 11/29/21 20:55 130 H 18 97 11/29/21 18:00 115 H 16 104/77 95 11/29/21 17:00 93 15 111/74 95 11/29/21 16:00 117 H 21 90/61 96 11/29/21 15:48 95 11/29/21 14:23 98.4 F 97 18 100/67 100 Results 11/30/21 06:13 11/29/21 14:59 Cardiac Enzymes 11/29/21 11/29/21 11/29/21 Range/Units 14:59 14:59 16:54 AST 20 (17-59) U/L Troponin I <0.012 <0.012 (0.000-0.034) ng/mL 11/29/21 11/29/21 Range/Units 20:05 21:53 AST (17-59) U/L Troponin I <0.012 <0.012 (0.000-0.034) ng/mL Coagulation 11/29/21 11/30/21 Range/Units 16:54 06:13 PT 10.1 10.3 (9.0-12.0) sec APTT 23.4 33.2 H (22.0-30.0) sec CBC 11/29/21 11/30/21 Range/Units 14:59 06:13 WBC 3.2 L 3.6 L (3.8-10.6) k/uL RBC 3.56 L 3.64 L (4.30-5.90) m/uL Hgb 9.9 L 10.1 L (13.0-17.5) gm/dL Hct 33.1 L 34.3 L (39.0-53.0) % Plt Count 271 242 (150-450) k/uL Comprehensive Metabolic Panel 11/29/21 Range/Units 14:59 Sodium 136 L (137-145) mmol/L Potassium 4.4 (3.5-5.1) mmol/L Chloride 106 (98-107) mmol/L Carbon Dioxide 25 (22-30) mmol/L BUN 12 (9-20) mg/dL Creatinine 0.90 (0.66-1.25) mg/dL Glucose 86 (74-99) mg/dL Calcium 8.5 (8.4-10.2) mg/dL AST 20 (17-59) U/L ALT 11 (4-49) U/L Alkaline Phosphatase 57 (38-126) U/L Total Protein 5.6 L (6.3-8.2) g/dL Albumin 3.5 (3.5-5.0) g/dL Current Medications Generic Name Dose Route Start Last Admin Trade Name Freq PRN Reason Stop Dose Admin Al Hydroxide/Mg Hydroxide 15 ml 11/29/21 19:04 Mag Hydrox/Al Hydrox/Simeth 30 Ml Cup PO Q6HR PRN Indigestion Amlodipine Besylate 5 mg 11/30/21 09:00 11/30/21 09:31 Amlodipine 5 Mg Tab PO 5 mg DAILY MERCEDES Administration Aspirin 81 mg 11/30/21 09:00 11/30/21 09:31 Aspirin 81 Mg PO 81 mg DAILY MERCEDES Administration Atorvastatin Calcium 20 mg 11/30/21 09:00 11/30/21 09:31 Atorvastatin 20 Mg Tab PO 20 mg DAILY MERCEDES Administration Duloxetine HCl 30 mg 11/30/21 09:00 11/30/21 09:31 Duloxetine Hcl 30 Mg Capsule. PO 30 mg DAILY MERCEDES Administration Heparin Sodium (Porcine) 0 unit 11/29/21 23:20 Heparin Sodium 1,000 Un/Ml (10ml Vl) IV PER PROTOCOL PRN Low PTT Protocol Hydromorphone HCl 1 mg 11/30/21 08:18 11/30/21 11:41 Hydromorphone 1 Mg/Ml 1 Ml Syringe IVP 1 mg Q4HR PRN Administration Pain Heparin Sodium/Sodium Chloride 250 mls @ 10.048 mls/hr 11/29/21 23:30 11/30/21 01:05 25,000 unit/ Sodium Chloride IV 10.4 units/kg/hr .Q24H MERCEDES 10.048 mls/hr Administration Protocol 10.4 UNITS/KG/HR Diltiazem HCl 125 mg/ Sodium 125 mls @ 5 mls/hr 11/29/21 23:45 11/30/21 01:06 Chloride IV 5 mg/hr .Q24H MERCEDES 5 mls/hr Administration 5 MG/HR Lisinopril 20 mg 11/30/21 09:00 11/30/21 09:30 Lisinopril 20 Mg Tab PO 20 mg DAILY MERCEDES Administration Lorazepam 0.5 mg 11/29/21 19:04 Lorazepam 0.5 Mg Tab PO Q6HR PRN Anxiety Metoprolol Tartrate 25 mg 11/30/21 09:00 11/30/21 09:31 Metoprolol Tartrate 25 Mg Tab PO 25 mg BID MERCEDES Administration Multivitamins 1 each 11/30/21 09:00 11/30/21 09:32 Multivitamins, Thera 1 Each Tab PO Not Given DAILY [facility] Naloxone HCl 0.2 mg 11/29/21 19:04 Naloxone 0.4 Mg/Ml 1 Ml Vial IV Q2M PRN Opioid Reversal Ondansetron HCl 4 mg 11/29/21 19:04 Ondansetron 4 Mg/2 Ml Vial IVP Q8HR PRN Nausea And Vomiting Tamsulosin HCl 0.4 mg 11/30/21 09:00 11/30/21 09:30 Tamsulosin 0.4 Mg Cap.Er.24h PO 0.4 mg DAILY MERCEDES Administration Temazepam 15 mg 11/29/21 19:04 Temazepam 15 Mg Cap PO HS PRN Insomnia Thiamine HCl 100 mg 11/30/21 09:00 11/30/21 09:31 Thiamine 100 Mg Tab PO Not Given DAILY MERCEDES 11/30/21 06:13 11/29/21 14:59
[2021-11-30] MEDS: APIXABAN 5 MG TAB PO SCH ×2 (14:33→20:26)
[2021-11-30] MEDS ORDERED: SODIUM CHLORIDE 0.9% 500 ML 500 ML IV ONE (17:58)
[2021-11-30] MEDS: HYDROcodone/APAP 5-325MG 1 EACH TAB PO PRN (18:51)
[2021-11-30] MEDS: METOPROLOL TARTRATE 50 MG TAB PO SCH (20:26)
[2021-12-01] MEDS: HYDROcodone/APAP 5-325MG 1 EACH TAB PO PRN ×3 (04:12→17:35)
[2021-12-01] MEDS: THIAMINE 100 MG TAB PO SCH (08:05)
[2021-12-01] MEDS: MULTIVITAMINS, THERA 1 EACH TAB PO SCH (08:05)
[2021-12-01] MEDS: ATORVASTATIN 20 MG TAB PO SCH (08:07)
[2021-12-01] MEDS: DULoxetine HCL 30 MG CAPSULE.DR PO SCH (08:07)
[2021-12-01] MEDS: TAMSULOSIN 0.4 MG CAP.ER.24H PO SCH (08:07)
[2021-12-01] MEDS: ASPIRIN 81 MG PO SCH (08:07)
[2021-12-01] MEDS: APIXABAN 5 MG TAB PO SCH ×2 (08:07→20:19)
[2021-12-01] MEDS: METOPROLOL TARTRATE 50 MG TAB PO SCH ×2 (08:07→20:19)
[2021-12-01] MEDS ORDERED: LIDOCAINE 5% PATCH TOPICAL SCH (11:30)
--- NOTE | 2021-12-01 11:32 | P.PN ---
Subjective Progress Note Date: 12/01/21 Hospital course: Patient is a very pleasant 61-year-old male with a past medical history of hypertension, hyperlipidemia, BPH, and EtOH abuse. Patient presented to the emergency department with a chief complaint of dizziness/lightheadedness and near syncopal episode while at [place]. patient reports he is currently is [place] secondary to EtOH abuse and states last alcoholic drink was 12 days ago. Upon arrival patient was found to be in new onset atrial fibrillation with RVR in 130's-140's. EKG was completed and revealed atrial fibrillation with RVR at 107 bpm. Chest x-ray negative for acute cardiopulmonary process revealing left basilar compression atelectasis favored to be secondary to hemidiaphragm elevation.CBC leukopenia with WBC count of 3.2, and normocytic normochromic anemia with hemoglobin of 9.9. Troponin was negative at less than 0.0124 draws. TSH was normal findings at 1.670. Urinalysis was negative for infection. Patient was started on heparin infusion Physical exam: Patient seen and fully evaluated at bedside this morning. Patient remains in atrial fibrillation with rate in 110-120s. Blood pressure stable this morning at 110/75. Patient reports having acute on chronic lower back pain with left- sided sciatica. Patient to continue [place] as needed for pain and lidocaine patch added on medication regimen. Patient otherwise denies having any complaints or concerns. He was sitting up on the edge of bed, appeared comfortable. He denied having any dizziness, lightheadedness, chest pain, palpitations, shortness of breath, or experiencing any numbness/tingling/weakness/swelling in his extremities. Vital signs reviewed and stable. General: Nontoxic, no distress and appears stated age. Derm: Skin warm and dry, normal coloration for ethnicity. Head: Atraumatic, normocephalic and symmetric. Eyes: EOMs intact, no lid lag, and anicteric sclera Mouth: no lip lesions, mucus membranes moist Cardiovascular: Irregularly irregular, no murmur, positive posterior tibial pulses bilaterally, and cap refill < 2 seconds. Lungs: Respirations even, regular, and unlabored on room air. Lungs CTA bilaterally, no rhonchi, no rales, no wheezing, and no accessory muscle usage. Abdominal: soft, nontender to palpation, no guarding, no appreciable organomegaly Ext: ROM intact. No gross muscle atrophy, no edema, no contractures Neuro: Speech clear, face symmetrical and CN II-XII grossly intact with no noted focal neuro deficits Psych: Alert and oriented to person, place, time, and situation. Appropriate and pleasant affect. Assessment and Plan of Care: Atrial fibrillation with RVR, newly diagnosed Dizziness/lightheadedness with reports of near syncopal episode, likely secondary to above -Started low intensity heparin infusion and on 11/30/21 was transitioned to oral anticoagulation with Eliquis. -Initially placed on Cardizem infusion and Currently on metoprolol 50 mg twice daily -Cardiology following -Cardiac monitoring -Echocardiogram revealing EF of 50-55% with no reported valvular or structural abnormalities. Bicytopenia, likely secondary to ongoing EtOH abuse -Monitor for now with no baseline available for comparison Hypertension monitor vital signs and continue daily medication regimen with amlodipine, li sinopril, and metoprolol. Hyperlipidemia Continue daily medication regimen with atorvastatin. BPH Continue daily medication regimen with Flomax CODE STATUS:full code DVT prophylaxis: heparin infusion Discussed with: patient and RN Anticipated discharge date: likely tomorrow Anticipated discharge place: return to [place] A total of 35 minutes was spent on the care of this complex patient more than 50% of the time was spent in counseling and care coordination. Objective - Vital Signs Vital signs: Vital Signs Temp 97.8 F 11/30/21 23:36 Pulse 88 12/01/21 03:43 Resp 22 12/01/21 03:43 BP 100/71 12/01/21 03:43 Pulse Ox 94 L 12/01/21 03:43 FiO2 Intake & Output 11/30/21 12/01/21 12/01/21 18:59 06:59 18:59 Intake Total 304.583 Balance 304.583 Weight 96.615 kg Intake: Intake, IV Titration 67.583 Amount Diltiazem 125 mg In 67.583 Sodium Chloride 0.9% 100 ml @ 5 MG/HR 5 mls/hr IV .Q24H MERCEDES Rx#:[id number] Oral 237 Other: # Voids 2 - Labs CBC & Chem 7: 11/30/21 06:13 11/29/21 14:59
--- NOTE | 2021-12-01 12:32 | P.PN ---
Subjective Progress Note Date: 12/01/21 HISTORY OF PRESENT ILLNESS: This is a 61-year-old male with a past medical history significant for hypertension, hyperlipidemia, BPH, and alcohol abuse. 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 We have been asked to see the patient in consultation for atrial fibrillation. Patient examined at the bedside in the emergency room. The patient is currently at [place] for alcohol abuse. He was brought to the hospital secondary to palpitations and dizziness. The patient was found to be in A. fib with RVR. The patient denies a history of atrial fibrillation. The patient was started on IV heparin and IV Cardizem. * EKG reveals atrial fibrillation with mild RVR * Chest xray left basilar compression atelectasis favored secondary to left hemidiaphragm elevation. Correlate clinically to exclude pneumonia. * Laboratory data: WBC 3.6. Hemoglobin 10.1. Platelet count 242. Sodium 136. Potassium 4.4. BUN 12. Creatinine 0.90. Troponin negative 4. TSH 1.670. * Current home cardiac medications include metoprolol tartrate 25 mg twice a day, lisinopril 20 mg daily, aspirin 81 mg daily, Lipitor 20 mg daily, amlodipine 5 mg daily * Echocardiogram completed revealing ejection fraction 50-55%, mild MR, mild TR 12/01/2021 Patient examined this point. He is sitting at the side of the bed. Patient denies chest pain or pressure. He denies shortness of breath. Patient remains in atrial fibrillation with controlled ventricular rates. Echocardiogram completed revealing ejection fraction 50-55%. Vital signs are stable this morning. Patient did develop hypotension yesterday and his Norvasc and lisinopril were discontinued. PHYSICAL EXAM: VITAL SIGNS: Reviewed. GENERAL: Well-developed in no acute distress. HEENT: Head is normocephalic. Pupils are equal, round. Sclerae anicteric. Mucous membranes of the mouth are moist. Neck supple. No JVD or thyromegaly LUNGS: Respirations even and unlabored. Lungs essentially clear to auscultation bilaterally. HEART: Irregular rate and rhythm. S1 and S2 heard. ABDOMEN: Soft. Nondistended. Nontender. EXTREMITIES: Normal range of motion. No clubbing or cyanosis. Peripheral pulses intact. Trace lower extremity edema NEUROLOGIC: Awake and alert. Oriented x 3. ASSESSMENT: Palpitations New onset atrial fibrillation with RVR Hypertension Hyperlipidemia History of alcohol abuse Hypotension, resolved PLAN: Continue current cardiac medications Continue to hold lisinopril and Norvasc at the time of discharge secondary to hypotension Patient is currently stable from a cardiac standpoint for discharge home today. He is to follow up on an outpatient basis. Nurse practitioner note has been reviewed by physician. Signing provider agrees with the documented findings, assessment, and plan of care. Objective - Vital Signs Vital signs: Vital Signs Temp 98.0 F 12/01/21 11:40 Pulse 73 12/01/21 11:40 Resp 16 12/01/21 11:40 BP 114/76 12/01/21 11:40 Pulse Ox 96 12/01/21 11:40 FiO2 Intake & Output 11/30/21 12/01/21 12/01/21 18:59 06:59 18:59 Intake Total 304.583 240 Balance 304.583 240 Weight 96.615 kg Intake: Intake, IV Titration 67.583 Amount Diltiazem 125 mg In 67.583 Sodium Chloride 0.9% 100 ml @ 5 MG/HR 5 mls/hr IV .Q24H MERCEDES Rx#:[id number] Oral 237 240 Other: # Voids 2 0 - Labs CBC & Chem 7: 11/30/21 06:13 11/29/21 14:59
--- NOTE | 2021-12-01 16:27 | P.DS ---
Providers Date of admission: 11/30/21 10:29 Expected date of discharge: 12/01/21 Attending physician: Cedric Almodovar MD Consults: 11/29/21 19:21 Consult Physician Routine Consulting Provider: Ugo Garber Consult Reason/Comments: new a fib Do you want consulting provider notified?: Yes Primary care physician: Physician Nonstaff Hospital Course: Discharge Diagnosis: Atrial fibrillation with RVR, newly diagnosed, Patient was started on heparin and Cardizem infusion and on 11/30/21 was transitioned to oral anticoagulation with Eliquis and oral metoprolol 50 mg twice a day. Patient to follow-up outpatient with cardiology in 1 week. Dizziness/lightheadedness with reports of near syncopal episode, secondary to above Bicytopenia, likely secondary to ongoing EtOH abuse. Stable continue to follow up outpatient with PCP for long-term monitoring and management. Recommend cessation of alcohol EtOH use. Hypertension, monitor vital signs and continue daily medication regimen with metoprolol 50 mg twice daily. Amlodipine and lisinopril were discontinued secondary to increase of metoprolol. Hyperlipidemia. Continue daily medication regimen with atorvastatin. BPH, Continue daily medication regimen with Flomax [facility] Course: Patient is a very pleasant 61-year-old male with a past medical history of hypertension, hyperlipidemia, BPH, and EtOH abuse. Patient presented to the emergency department with a chief complaint of dizziness/lightheadedness and near syncopal episode while at [place]. Patient reports he is currently is [place] secondary to EtOH abuse and states last alcoholic drink was 12 days ago. Upon arrival patient was found to be in new onset atrial fibrillation with RVR in 130's-140's. EKG was completed and revealed atrial fibrillation with RVR at 107 bpm. Chest x-ray negative for acute cardiopulmonary process revealing left basilar compression atelectasis favored to be secondary to hemidiaphragm elevation.CBC leukopenia with WBC count of 3.2, and normocytic normochromic anemia with hemoglobin of 9.9. Troponin was negative at less than 0.0124 draws. TSH was normal findings at 1.670. Urinalysis was negative for infection. Patient was started on heparin and Cardizem infusion and on 11/30/21 was transitioned to oral anticoagulation with Eliquis and oral metoprolol 50 mg twice a day. Heart rate has maintain 70s to 90s. Echocardiogram revealing EF of 50-55% with no reported valvular or structural abnormalities. Patient cleared by cardiology for discharge at this time. Patient is medically stable for discharge at this time. Patient was encouraged to return to [place] and avoid all alcohol use. Prescription sent for metoprolol and Eliquis. Patient instructed that he will need to follow up with PCP and cardiology as directed upon discharge from [place]. Physical examination: Vital signs reviewed and stable. General: Nontoxic, no distress and appears stated age. Derm: Skin warm and dry, normal coloration for ethnicity. Head: Atraumatic, normocephalic and symmetric. Eyes: EOMs intact, no lid lag, and anicteric sclera Mouth: no lip lesions, mucus membranes moist Cardiovascular: regular rate and rhythm with normal S1S2, no murmur, positive posterior tibial pulses bilaterally, and cap refill < 2 seconds. Lungs: Respirations even, regular, and unlabored on room air. Lungs CTA bilaterally, no rhonchi, no rales, no wheezing, and no accessory muscle usage. Abdominal: soft, nontender to palpation, no guarding, no appreciable organomegaly Ext: ROM intact. No gross muscle atrophy, no edema, no contractures Neuro: Speech clear, face symmetrical and CN II-XII grossly intact with no noted focal neuro deficits Psych: Alert and oriented to person, place, time, and situation. Appropriate and pleasant affect. A total of 35 minutes of time were spent preparing this complex discharge summary. Pt was discharged on 12/01/21 at 4:26 PM Patient Condition at Discharge: Stable Plan - Discharge Summary New Discharge Prescriptions: New Apixaban [Eliquis] 5 mg PO BID #60 tab Metoprolol Tartrate [Lopressor] 50 mg PO BID 30 Days #60 tab Continue Zofran (Unknown Dose) 1 dose PO Q6H PRN PRN Reason: Nausea Multivitamins, Thera [Multivitamin (formulary)] 1 tab PO DAILY Ibuprofen [Motrin Ib] 600 mg PO Q6H PRN PRN Reason: Pain Tamsulosin HCl [Flomax] 0.4 mg PO DAILY Omeprazole 40 mg PO DAILY Calcium, Magnesium, Zinc, With Vitamin D 1 tab PO TID PRN PRN Reason: CRAMPS DULoxetine HCL [Cymbalta] 30 mg PO DAILY Acetaminophen [Tylenol 8 Hour] 650 mg PO Q4H PRN PRN Reason: Pain Thiamine [Vitamin B-1] 100 mg PO DAILY Loperamide HCl [Imodium A-D] 4 mg PO QID PRN PRN Reason: Loose Stool Nitroglycerin Sl Tabs [Nitrostat] 0.4 mg SUBLINGUAL Q5M PRN PRN Reason: Chest Pain Atorvastatin [Lipitor] 20 mg PO DAILY Aspirin 81 mg PO DAILY Discontinued amLODIPine [Norvasc] 5 mg PO DAILY lisinopriL [Zestril] 20 mg PO DAILY Metoprolol Tartrate [Lopressor] 25 mg PO BID Discharge Medication List Acetaminophen [Tylenol 8 Hour] 650 mg PO Q4H PRN 11/29/21 [History] Aspirin 81 mg PO DAILY 11/29/21 [History] Atorvastatin [Lipitor] 20 mg PO DAILY 11/29/21 [History] Calcium, Magnesium, Zinc, With Vitamin D 1 tab PO TID PRN 11/29/21 [History] DULoxetine HCL [Cymbalta] 30 mg PO DAILY 11/29/21 [History] Ibuprofen [Motrin Ib] 600 mg PO Q6H PRN 11/29/21 [History] Loperamide HCl [Imodium A-D] 4 mg PO QID PRN 11/29/21 [History] Multivitamins, Thera [Multivitamin (formulary)] 1 tab PO DAILY 11/29/21 [History] Nitroglycerin Sl Tabs [Nitrostat] 0.4 mg SUBLINGUAL Q5M PRN 11/29/21 [History] Omeprazole 40 mg PO DAILY 11/29/21 [History] Tamsulosin HCl [Flomax] 0.4 mg PO DAILY 11/29/21 [History] Thiamine [Vitamin B-1] 100 mg PO DAILY 11/29/21 [History] Zofran (Unknown Dose) 1 dose PO Q6H PRN 11/29/21 [History] Apixaban [Eliquis] 5 mg PO BID #60 tab 11/30/21 [Rx] Metoprolol Tartrate [Lopressor] 50 mg PO BID 30 Days #60 tab 12/01/21 [Rx] Follow up Appointment(s)/Referral(s): [facility] [Outside] (rehab. ) Ugo Garber MD [STAFF PHYSICIAN] - 1 Week (patient refusing appointment to be made states he will follow with a online tutor when he gets back to [place]. ) Clovis Benavides MD [REFERRING] - 1 Week (patient refusing.) Patient Instructions/Handouts: Apixaban (By mouth), A-fib (Atrial Fibrillation) (DC) Activity/Diet/Wound Care/Special Instructions: Activity: As tolerated. Take breaks as needed. Diet: Heart healthy and carb consistent diet. Avoid salts, or foods with hidden salts such as canned or boxed foods and frozen dinners. Extra salt makes your heart work harder and traps the fluid in your body for longer. Special Instructions: Take all of your medications as directed and remember to keep all of your doctor's appointments and follow-up as needed. Recommend returning to [place] and avoidance of all alcoholic beverages. You are also being discharged home on a blood thinner, Eliquis. This is very important to take daily as directed until otherwise advised by your online tutor-Dr. Garber. Being that you are being placed on a blood thinner it is very important to watch for any signs of bleeding and notify your doctor immediately if you notice any bleeding. It is also important to remove any trip hazards such as rugs or loose extension cords from your home to prevent unnecessary falls and if you do experience a fall or head injury, it is extremely important to be evaluated by a medical provider immediately to ensure no internal bleeding. Thank you for allowing us to participate in your care, it was truly a pleasure having you for our patient!!! Discharge Disposition: HOME SELF-CARE
[2021-12-01 20:16] VITALS: BP 111/56; PULSE 95; RESP 18; TEMP 97.9
== END 2021-12-01 20:27 | DRG 309 ==
LOC: EC 14:19 → 3SCARD 19:04 → OBSVTOIN 11-30 10:29 → 3SCARD 11-30 13:05
PROVIDERS: ADMIT Hospitalist; ATTEND Hospitalist
DX: I48.91 Unspecified atrial fibrillation (principal); J98.11 Atelectasis; J44.9 Chronic obstructive pulmonary disease, unspecified; J98.6 Disorders of diaphragm; F17.210 Nicotine dependence, cigarettes, uncomplicated; D64.9 Anemia, unspecified; D72.819 Decreased white blood cell count, unspecified; E78.5 Hyperlipidemia, unspecified; F10.10 Alcohol abuse, uncomplicated; F32.A Depression, unspecified; I10 Essential (primary) hypertension; N40.0 Benign prostatic hyperplasia without lower urinary tract symptoms; Z79.82 Long term (current) use of aspirin; Z79.899 Other long term (current) drug therapy; Z82.5 Family history of asthma and other chronic lower respiratory diseases; Z28.21 Immunization not carried out because of patient refusal; Z98.890 Other specified postprocedural states; Z90.49 Acquired absence of other specified parts of digestive tract
CPT/HCPCS: 36415; 71045; 80053; 81001; 83735; 84443; 84484; 85025; 85610; 85730; 93005; 93306

== ENCOUNTER 2022-03-04 18:42 | Observation (INO) | payer OTHER ==
[2022-03-04 19:30] LABS: Appearance,Urine Clear (Clear); Bilirubin,Urine Negative (Negative); Blood,Urine Negative (Negative); Color,Urine Yellow; Glucose,Urine (UA) Negative (Negative); Hyaline Casts,Urine 1 /lpf (0-2); Ketones,Urine Trace (Negative); Leukocyte Esterase,Urine Trace (Negative); Mucus,Urine Rare /hpf; Nitrite,Urine Negative (Negative); Protein,Urine Trace (Negative); RBC,Urine 1 /hpf (0-5); Specific Gravity,Urine 1.031 (1.001-1.035); Squamous Epithelial Cell,Urine 1 /hpf (0-4); WBC,Urine 3 /hpf (0-5)
[2022-03-04] MEDS ORDERED: SODIUM CHLORIDE 0.9% 1,000 ML IV STA (19:56)
[2022-03-04] MEDS ORDERED: MORPHINE SULFATE 4 MG/ML SYRINGE IV STA (19:56)
[2022-03-04] MEDS ORDERED: ONDANSETRON 4 MG/2 ML VIAL IVP STA (19:56)
[2022-03-04 20:39] LABS: Anisocytosis Slight; Basophils % (A) 1 %; Eosinophils # (A) 0.1 k/uL (0-0.7); Eosinophils % (A) 2 %; HCT 28.5 % (39.0-53.0); HGB 8.7 gm/dL (13.0-17.5); Hypochromasia Moderate; Lymphocytes # (A) 1.6 k/uL (1.0-4.8); Lymphocytes % (A) 28 %; MCH 25.9 pg (25.0-35.0); MCHC 30.5 g/dL (31.0-37.0); MCV 85.2 fL (80.0-100.0); Mean Platelet Volume 9.8; Monocytes # (A) 0.4 k/uL (0-1.0); Monocytes % (A) 7 %; Neutrophils # (A) 3.4 k/uL (1.3-7.7); Neutrophils % (A) 60 %; Platelet Count 292 k/uL (150-450); RBC 3.35 m/uL (4.30-5.90); RDW 16.7 % (11.5-15.5); WBC 5.6 k/uL (3.8-10.6)
[2022-03-04 20:48] LABS: ALT 10 U/L (4-49); AST 15 U/L (17-59); African American GFR (CKD) >90 (>60 ml/min/1.73 sqM); Albumin 3.6 g/dL (3.5-5.0); Alkaline Phosphatase 62 U/L (38-126); Anion Gap 10 mmol/L; Blood Urea Nitrogen 17 mg/dL (9-20); Calcium 8.6 mg/dL (8.4-10.2); Carbon Dioxide 21 mmol/L (22-30); Chloride 106 mmol/L (98-107); Glucose 86 mg/dL (74-99); Lipase 201 U/L (23-300); Non-African American GFR(CKD) 79 (>60 ml/min/1.73 sqM); Potassium 4.4 mmol/L (3.5-5.1); Sodium 137 mmol/L (137-145); Total Bilirubin <0.1 mg/dL (0.2-1.3); Total Protein 5.4 g/dL (6.3-8.2)
--- NOTE | 2022-03-04 22:11 | CT ---
EXAMINATION TYPE: CT abdomen pelvis wo con DATE OF EXAM: 03/04/2022 COMPARISON: None HISTORY: upper abd pain, hx of ventral hernia CT DLP: 889.6 mGycm Automated exposure control for dose reduction was used. Images obtained from the diaphragm to the floor the pelvis with no contrast. Lung bases are clear. No pleural effusion. Heart size is normal. No pericardial effusion there is epi gastric ventral hernia containing incarcerated loop of transverse colon. Liver spleen and stomach pancreas and gallbladder appear intact. The bile ducts are not dilated. There is no adrenal mass. Kidneys show normal size and contour. No hydronephrosis. Ureters are not di lated. No retroperitoneal adenopathy. Bladder distends smoothly. There is right inguinal hernia conta ining fat. No free fluid in the pelvis. There are sigmoid multiple diverticula. No diverticulitis. Appendix is inferior and appears normal. There is no mesenteric edema. No ascites or free air. No sig n of a bowel obstruction. There are spondylotic changes in the lumbar spine with bilateral L3 spondyl olysis. There is first-degree L3-4 spondylolisthesis. The bony pelvis is intact. The hip joints are i ntact. IMPRESSION: Incarcerated ventral hernia containing transverse colon. No significant dilation of the bowel to sugg est a bowel obstruction. Atherosclerotic vascular disease. Normal appendix. Colonic diverticulosis without diverticulitis.
[2022-03-04] MEDS ORDERED: NALOXONE 0.4 MG/ML 1 ML VIAL IV PRN (22:45)
[2022-03-04] MEDS ORDERED: HYDROmorphone 0.5 MG/0.5 ML SYRINGE IVP STA (22:50)
--- NOTE | 2022-03-04 23:49 | ED ---
Abdominal Pain HPI - General Chief Complaint: Abdominal Pain Stated Complaint: Abd Pain Time Seen by Provider: 03/04/22 19:44 Source: patient Mode of arrival: ambulatory Limitations: no limitations - History of Present Illness Initial Comments: Patient is a 61-year-old male with a past medical history of ventral hernia with repair who presents to the emergency department with a chief complaint abdominal pain. Patient states he has been at [facility] for alcoholism for the past week and half. States during his time there he has experienced increased upper abdominal pain where his hernia is. Has taken Tylenol and Motrin without relief. Denies fever, chills, nausea, vomiting, diarrhea, blood in stool, last bowel movement was this morning which patient states was normal. Patient denies chronic anti-inflammatory use. Denies recent alcohol use. - Related Data Home Medications Medication Instructions Recorded Confirmed Acetaminophen [Tylenol 8 Hour] 650 mg PO Q4H PRN 11/29/21 11/29/21 Aspirin 81 mg PO DAILY 11/29/21 11/29/21 Atorvastatin [Lipitor] 20 mg PO DAILY 11/29/21 11/29/21 Calcium, Magnesium, Zinc, With 1 tab PO TID PRN 11/29/21 11/29/21 Vitamin D DULoxetine HCL [Cymbalta] 30 mg PO DAILY 11/29/21 11/29/21 Ibuprofen [Motrin Ib] 600 mg PO Q6H PRN 11/29/21 11/29/21 Loperamide HCl [Imodium A-D] 4 mg PO QID PRN 11/29/21 11/29/21 Multivitamins, Thera [Multivitamin 1 tab PO DAILY 11/29/21 11/29/21 (formulary)] Nitroglycerin Sl Tabs [Nitrostat] 0.4 mg SUBLINGUAL Q5M PRN 11/29/21 11/29/21 Omeprazole 40 mg PO DAILY 11/29/21 11/29/21 Tamsulosin HCl [Flomax] 0.4 mg PO DAILY 11/29/21 11/29/21 Thiamine [Vitamin B-1] 100 mg PO DAILY 11/29/21 11/29/21 Zofran (Unknown Dose) 1 dose PO Q6H PRN 11/29/21 11/29/21 Previous Rx's Medication Instructions Recorded Apixaban [Eliquis] 5 mg PO BID #60 tab 11/30/21 Metoprolol Tartrate [Lopressor] 50 mg PO BID 30 Days #60 tab 12/01/21 Allergies Allergy/AdvReac Type Severity Reaction Status Date / Time No Known Allergies Allergy Verified 03/04/22 19:00 Review of Systems ROS Statement: Those systems with pertinent positive or pertinent negative responses have been documented in the HPI. ROS Other: All systems not noted in ROS Statement are negative. Past Medical History Past Medical History: COPD, Hypertension Additional Past Medical History / Comment(s): hernia History of Any Multi-Drug Resistant Organisms: None Reported Past Surgical History: Cholecystectomy, Hernia Repair Additional Past Surgical History / Comment(s): galladder Past Anesthesia/Blood Transfusion Reactions: No Reported Reaction Past Psychological History: Depression Smoking Status: Current every day smoker Past Alcohol Use History: Abuse, Daily, Heavy Past Drug Use History: Marijuana - Past Family History Father Family Medical History: COPD General Exam Limitations: no limitations General appearance: alert, in no apparent distress Head exam: Present: atraumatic, normocephalic, normal inspection Respiratory exam: Present: normal lung sounds bilaterally. Absent: respiratory distress, wheezes, rales, rhonchi, stridor Cardiovascular Exam: Present: regular rate, normal rhythm, normal heart sounds. Absent: systolic murmur, diastolic murmur, rubs, gallop, clicks GI/Abdominal exam: Present: soft, tenderness (upper ), normal bowel sounds, hernia (ventral, soft, no overlying skin changes ). Absent: distended, guarding, rebound, rigid Neurological exam: Present: alert, oriented X3, CN II-XII intact Psychiatric exam: Present: normal affect, normal mood Skin exam: Present: warm, dry, intact, normal color. Absent: rash Course Vital Signs 03/04/22 03/04/22 03/04/22 18:57 20:37 21:07 Temperature 98.5 F 98.3 F Pulse Rate 71 65 69 Respiratory 18 20 17 Rate Blood Pressure 117/42 121/77 O2 Sat by Pulse 94 L 97 92 L Oximetry Medical Decision Making - Medical Decision Making This is a 61-year-old male presenting with abdominal pain. Patient well- appearing and in no apparent distress. Vitals stable. Afebrile. Laboratory studies obtained. There is no leukocytosis. Hemoglobin is low at 8.7, decreased from 10.1 on 11/30. Other laboratory studies are relatively unremarkable. CT of the abdomen and pelvis with contrast shows an incarcerated ventral hernia containing transverse colon. There is no significant dilation of the bowel to suggest bowel obstruction. Pain controlled. Results discussed with patient and hernia was reduced successfully without issue. Case discussed with Dr. Galeas who accepts admission. [facility] on consult for medical management. Patient admitted in stable condition. Dr. Snider is my attending. - Lab Data Result diagrams: 03/04/22 20:23 03/04/22 20:23 Lab Results 03/04/22 03/04/22 03/04/22 Range/Units 19:12 20:23 20:23 WBC 5.6 (3.8-10.6) k/uL RBC 3.35 L (4.30-5.90) m/uL Hgb 8.7 L (13.0-17.5) gm/dL Hct 28.5 L (39.0-53.0) % MCV 85.2 (80.0-100.0) fL MCH 25.9 (25.0-35.0) pg MCHC 30.5 L (31.0-37.0) g/dL RDW 16.7 H (11.5-15.5) % Plt Count 292 (150-450) k/uL MPV 9.8 Neutrophils % 60 % Lymphocytes % 28 % Monocytes % 7 % Eosinophils % 2 % Basophils % 1 % Neutrophils # 3.4 (1.3-7.7) k/uL Lymphocytes # 1.6 (1.0-4.8) k/uL Monocytes # 0.4 (0-1.0) k/uL Eosinophils # 0.1 (0-0.7) k/uL Basophils # 0.0 (0-0.2) k/uL Hypochromasia Moderate Anisocytosis Slight Sodium 137 (137-145) mmol/L Potassium 4.4 (3.5-5.1) mmol/L Chloride 106 (98-107) mmol/L Carbon Dioxide 21 L (22-30) mmol/L Anion Gap 10 mmol/L BUN 17 (9-20) mg/dL Creatinine 1.03 (0.66-1.25) mg/dL Est GFR (CKD-EPI)AfAm >90 (>60 ml/min/1.73 sqM) Est GFR (CKD-EPI)NonAf 79 (>60 ml/min/1.73 sqM) Glucose 86 (74-99) mg/dL Plasma Lactic Acid Pranay (0.7-2.0) mmol/L Calcium 8.6 (8.4-10.2) mg/dL Total Bilirubin <0.1 L (0.2-1.3) mg/dL AST 15 L (17-59) U/L ALT 10 (4-49) U/L Alkaline Phosphatase 62 (38-126) U/L Total Protein 5.4 L (6.3-8.2) g/dL Albumin 3.6 (3.5-5.0) g/dL Lipase 201 (23-300) U/L Urine Color Yellow Urine Appearance Clear (Clear) Urine pH 6.0 (5.0-8.0) Ur Specific [place] 1.031 (1.001-1.035) Urine Protein Trace H (Negative) Urine Glucose (UA) Negative (Negative) Urine Ketones Trace H (Negative) Urine Blood Negative (Negative) Urine Nitrite Negative (Negative) Urine Bilirubin Negative (Negative) Urine Urobilinogen 2.0 (<2.0) mg/dL Ur Leukocyte Esterase Trace H (Negative) Urine RBC 1 (0-5) /hpf Urine WBC 3 (0-5) /hpf Ur Squamous Epith Cells 1 (0-4) /hpf Hyaline Casts 1 (0-2) /lpf Urine Mucus Rare H (None) /hpf 03/04/22 Range/Units 20:23 WBC (3.8-10.6) k/uL RBC (4.30-5.90) m/uL Hgb (13.0-17.5) gm/dL Hct (39.0-53.0) % MCV (80.0-100.0) fL MCH (25.0-35.0) pg MCHC (31.0-37.0) g/dL RDW (11.5-15.5) % Plt Count (150-450) k/uL MPV Neutrophils % % Lymphocytes % % Monocytes % % Eosinophils % % Basophils % % Neutrophils # (1.3-7.7) k/uL Lymphocytes # (1.0-4.8) k/uL Monocytes # (0-1.0) k/uL Eosinophils # (0-0.7) k/uL Basophils # (0-0.2) k/uL Hypochromasia Anisocytosis Sodium (137-145) mmol/L Potassium (3.5-5.1) mmol/L Chloride (98-107) mmol/L Carbon Dioxide (22-30) mmol/L Anion Gap mmol/L BUN (9-20) mg/dL Creatinine (0.66-1.25) mg/dL Est GFR (CKD-EPI)AfAm (>60 ml/min/1.73 sqM) Est GFR (CKD-EPI)NonAf (>60 ml/min/1.73 sqM) Glucose (74-99) mg/dL Plasma Lactic Acid Pranay 1.0 (0.7-2.0) mmol/L Calcium (8.4-10.2) mg/dL Total Bilirubin (0.2-1.3) mg/dL AST (17-59) U/L ALT (4-49) U/L Alkaline Phosphatase (38-126) U/L Total Protein (6.3-8.2) g/dL Albumin (3.5-5.0) g/dL Lipase (23-300) U/L Urine Color Urine Appearance (Clear) Urine pH (5.0-8.0) Ur Specific [place] (1.001-1.035) Urine Protein (Negative) Urine Glucose (UA) (Negative) Urine Ketones (Negative) Urine Blood (Negative) Urine Nitrite (Negative) Urine Bilirubin (Negative) Urine Urobilinogen (<2.0) mg/dL Ur Leukocyte Esterase (Negative) Urine RBC (0-5) /hpf Urine WBC (0-5) /hpf Ur Squamous Epith Cells (0-4) /hpf Hyaline Casts (0-2) /lpf Urine Mucus (None) /hpf Disposition Clinical Impression: Incarcerated ventral hernia, Abdominal pain Disposition: ADMITTED IP TO THIS HOSP Condition: Good Decision Time: 23:49
[2022-03-05] MEDS: MORPHINE SULFATE 4 MG/ML SYRINGE IVP PRN ×4 (00:38→12:49)
--- NOTE | 2022-03-05 04:09 | P.CONS ---
History of Present Illness - Reason for Consult Consult date: 03/05/22 - History of Present Illness The patient is a 61-year-old male with a PMH of COPD, Afib on Eliquis, EtOH abuse, hyperlipidemia, and hypertension who presents to the emergency room from [facility] where he has been staying for the past 4 weeks. The patient reports that he suddenly developed upper abdominal pain earlier today, 9 out of 10, with no associated symptoms. The patient does report a history of ventral hernia status post repair as well as cholecystectomy. Denied experiencing nausea, fever, chills, diarrhea. Denied chest pain, shortness of breath. CT abdomen and pelvis in the emergency room revealed an incarcerated ventral hernia containing transverse colon. Laboratory evaluation was remarkable for hemoglobin of 8.7 (previously 10.1.) Review of systems: Pertinent positives and negatives as discussed in HPI, a complete review of systems was performed and all other systems are negative. Physical examination: General: non toxic, no distress, appears at stated age, overweight Derm: no unusual rashes/lesions, warm Head: atraumatic, normocephalic, symmetric Eyes: EOMI, no lid lag, anicteric sclera, pupils equal round reactive to light ENT: Nose and ears atraumatic Neck: No cervical lymphadenopathy, trachea midline, supple Mouth: no lip lesion, mucus membranes moist Cardiovascular: S1S2 reg, no murmur, positive dorsalis pedis pulse bilateral, no edema Lungs: CTA bilateral, no rhonchi, no rales, no accessory muscle use Abdominal: soft, upper abdominal ventral hernia noted with mild diffuse tenderness, no guarding Ext: muscle strength 5 out of 5 in all 4 extremities grossly, no gross muscle atrophy, no contractures, Neuro: CN II-XI grossly intact, no gross focal neuro deficits Psych: Alert, oriented, appropriate affect Assessment/plan Chronic conditions: COPD, hypertension, A. fib -Continue with home meds History of EtOH abuse -Patient reports that his last drink was 4 weeks ago as he has been at [facility] for detox Normocytic anemia -Suspected due to EtOH abuse -Check anemia panel Incarcerated ventral hernia -Defer management including pain control and DVT prophylaxis to the primary surgery service We appreciate this opportunity to be involved in this patient's care. We will follow the patient with you. For any further questions, please not hesitate to contact the [facility] inpatient team. Past Medical History Past Medical History: Atrial Fibrillation, COPD, Hypertension Additional Past Medical History / Comment(s): hernia, alcohol abuse History of Any Multi-Drug Resistant Organisms: None Reported Past Surgical History: Cholecystectomy, Hernia Repair Additional Past Surgical History / Comment(s): galladder Past Anesthesia/Blood Transfusion Reactions: No Reported Reaction Past Psychological History: Depression, PTSD Smoking Status: Current every day smoker Past Alcohol Use History: Abuse, Daily, Heavy Additional Past Alcohol Use History / Comment(s): Pt states he has been at [facility] for 2 weeks; he is currently sober but was abusing alcohol prior to going to [facility]. Pt states he is homeless. Past Drug Use History: Marijuana - Past Family History Father Family Medical History: COPD Medications and Allergies Home Medications Medication Instructions Recorded Confirmed Type Acetaminophen [Tylenol 8 Hour] 650 mg PO Q4H PRN 11/29/21 11/29/21 History Aspirin 81 mg PO DAILY 11/29/21 11/29/21 History Atorvastatin [Lipitor] 20 mg PO DAILY 11/29/21 11/29/21 History Calcium, Magnesium, Zinc, With 1 tab PO TID PRN 11/29/21 11/29/21 History Vitamin D DULoxetine HCL [Cymbalta] 30 mg PO DAILY 11/29/21 11/29/21 History Ibuprofen [Motrin Ib] 600 mg PO Q6H PRN 11/29/21 11/29/21 History Loperamide HCl [Imodium A-D] 4 mg PO QID PRN 11/29/21 11/29/21 History Multivitamins, Thera [Multivitamin 1 tab PO DAILY 11/29/21 11/29/21 History (formulary)] Nitroglycerin Sl Tabs [Nitrostat] 0.4 mg SUBLINGUAL Q5M PRN 11/29/21 11/29/21 History Omeprazole 40 mg PO DAILY 11/29/21 11/29/21 History Tamsulosin HCl [Flomax] 0.4 mg PO DAILY 11/29/21 11/29/21 History Thiamine [Vitamin B-1] 100 mg PO DAILY 11/29/21 11/29/21 History Zofran (Unknown Dose) 1 dose PO Q6H PRN 11/29/21 11/29/21 History Apixaban [Eliquis] 5 mg PO BID #60 tab 11/30/21 Rx Metoprolol Tartrate [Lopressor] 50 mg PO BID 30 Days #60 tab 12/01/21 Rx Allergies Allergy/AdvReac Type Severity Reaction Status Date / Time No Known Allergies Allergy Verified 03/04/22 19:00 Physical Exam Vitals: Vital Signs Temp Pulse Pulse Resp BP BP Pulse Ox 03/05/22 02:35 97.4 F L 66 18 116/66 96 03/05/22 01:56 68 17 03/05/22 00:23 97.8 F 68 17 112/72 93 L 03/04/22 21:07 69 17 121/77 92 L 03/04/22 20:37 98.3 F 65 20 97 03/04/22 18:57 98.5 F 71 18 117/42 94 L Intake and Output 03/04/22 03/04/22 03/05/22 14:59 22:59 06:59 Other: Voiding Method Toilet Toilet Weight 93.894 kg 93.894 kg Results CBC & Chem 7: 03/04/22 20:23 03/04/22 20:23 Labs: Abnormal Lab Results - Last 24 Hours (Table) 03/04/22 03/04/22 03/04/22 Range/Units 19:12 20:23 20:23 RBC 3.35 L (4.30-5.90) m/uL Hgb 8.7 L (13.0-17.5) gm/dL Hct 28.5 L (39.0-53.0) % MCHC 30.5 L (31.0-37.0) g/dL RDW 16.7 H (11.5-15.5) % Carbon Dioxide 21 L (22-30) mmol/L Total Bilirubin <0.1 L (0.2-1.3) mg/dL AST 15 L (17-59) U/L Total Protein 5.4 L (6.3-8.2) g/dL Urine Protein Trace H (Negative) Urine Ketones Trace H (Negative) Ur Leukocyte Esterase Trace H (Negative) Urine Mucus Rare H (None) /hpf
[2022-03-05 07:46] VITALS: BP 101/63; PULSE 76; RESP 17; TEMP 97.9
[2022-03-05 11:08] LABS: % Iron Saturation 3.89 (15.00-50.00); Ferritin 9.7 ng/mL (22.0-322.0)
--- NOTE | 2022-03-05 11:55 | P.GSHP ---
History of Present Illness H&P Date: 03/05/22 Chief Complaint: Incisional hernia 61-year-old male with history of previous open cholecystectomy. Patient states he has had numerous surgeries to fix hernias with mesh in the past. He is staying at [facility] for alcohol abuse. He was having increased pain yesterday in the abdomen. In the ER he had a CAT scan performed showing an incarcerated hernia in the upper midline containing transverse colon. Per the ER staff this was able to be fairly easily reduced. He was kept overnight for observation given the pain that he was experiencing. Today his pain is improv ed. Hernia remains easily reducible. No nausea or vomiting. - Review of Systems Comment: The patient denies any acute changes in vision or hearing, no dysphagia or odynophagia, no chest pain or shortness of breath, no dysuria or hematuria, no headache, no runny nose, no rectal bleeding or melena, no unexplained weight loss Past Medical History Past Medical History: Atrial Fibrillation, COPD, Hypertension Additional Past Medical History / Comment(s): hernia, alcohol abuse History of Any Multi-Drug Resistant Organisms: None Reported Past Surgical History: Cholecystectomy, Hernia Repair Additional Past Surgical History / Comment(s): galladder Past Anesthesia/Blood Transfusion Reactions: No Reported Reaction Past Psychological History: Depression, PTSD Smoking Status: Current every day smoker Past Alcohol Use History: Abuse, Daily, Heavy Additional Past Alcohol Use History / Comment(s): Pt states he has been at [facility] for 2 weeks; he is currently sober but was abusing alcohol prior to going to [facility]. Pt states he is homeless. Past Drug Use History: Marijuana - Past Family History Father Family Medical History: COPD Medications and Allergies Home Medications Medication Instructions Recorded Confirmed Type Acetaminophen [Tylenol 8 Hour] 650 mg PO Q4H PRN 11/29/21 11/29/21 History Aspirin 81 mg PO DAILY 11/29/21 11/29/21 History Atorvastatin [Lipitor] 20 mg PO DAILY 11/29/21 11/29/21 History Calcium, Magnesium, Zinc, With 1 tab PO TID PRN 11/29/21 11/29/21 History Vitamin D DULoxetine HCL [Cymbalta] 30 mg PO DAILY 11/29/21 11/29/21 History Ibuprofen [Motrin Ib] 600 mg PO Q6H PRN 11/29/21 11/29/21 History Loperamide HCl [Imodium A-D] 4 mg PO QID PRN 11/29/21 11/29/21 History Multivitamins, Thera [Multivitamin 1 tab PO DAILY 11/29/21 11/29/21 History (formulary)] Nitroglycerin Sl Tabs [Nitrostat] 0.4 mg SUBLINGUAL Q5M PRN 11/29/21 11/29/21 History Omeprazole 40 mg PO DAILY 11/29/21 11/29/21 History Tamsulosin HCl [Flomax] 0.4 mg PO DAILY 11/29/21 11/29/21 History Thiamine [Vitamin B-1] 100 mg PO DAILY 11/29/21 11/29/21 History Zofran (Unknown Dose) 1 dose PO Q6H PRN 11/29/21 11/29/21 History Apixaban [Eliquis] 5 mg PO BID #60 tab 11/30/21 Rx Metoprolol Tartrate [Lopressor] 50 mg PO BID 30 Days #60 tab 12/01/21 Rx Allergies Allergy/AdvReac Type Severity Reaction Status Date / Time No Known Allergies Allergy Verified 03/04/22 19:00 Surgical - Exam Vital Signs Temp Pulse Resp BP Pulse Ox 98.5 F 71 18 117/42 94 L 03/04/22 18:57 03/04/22 18:57 03/04/22 18:57 03/04/22 18:57 03/04/22 18:57 Physical exam: General: Well-developed, well-nourished HEENT: Normocephalic, sclerae nonicteric Abdomen: Nontender, nondistended, easily reducible upper incisional hernia Extremities: No edema Neuro: Alert and oriented Results - Labs 03/04/22 20:23 03/04/22 20:23 Abnormal Lab Results - Last 24 Hours (Table) 03/04/22 03/04/22 03/04/22 Range/Units 19:12 20:23 20:23 RBC 3.35 L (4.30-5.90) m/uL Hgb 8.7 L (13.0-17.5) gm/dL Hct 28.5 L (39.0-53.0) % MCHC 30.5 L (31.0-37.0) g/dL RDW 16.7 H (11.5-15.5) % Carbon Dioxide 21 L (22-30) mmol/L Iron (65-175) ug/dL % Saturation (15.00-50.00) Ferritin (22.0-322.0) ng/mL Total Bilirubin <0.1 L (0.2-1.3) mg/dL AST 15 L (17-59) U/L Total Protein 5.4 L (6.3-8.2) g/dL Urine Protein Trace H (Negative) Urine Ketones Trace H (Negative) Ur Leukocyte Esterase Trace H (Negative) Urine Mucus Rare H (None) /hpf 03/05/22 Range/Units 05:35 RBC (4.30-5.90) m/uL Hgb (13.0-17.5) gm/dL Hct (39.0-53.0) % MCHC (31.0-37.0) g/dL RDW (11.5-15.5) % Carbon Dioxide (22-30) mmol/L Iron 14 L (65-175) ug/dL % Saturation 3.89 L (15.00-50.00) Ferritin 9.7 L (22.0-322.0) ng/mL Total Bilirubin (0.2-1.3) mg/dL AST (17-59) U/L Total Protein (6.3-8.2) g/dL Urine Protein (Negative) Urine Ketones (Negative) Ur Leukocyte Esterase (Negative) Urine Mucus (None) /hpf Diabetes panel 03/04/22 Range/Units 20:23 Sodium 137 (137-145) mmol/L Potassium 4.4 (3.5-5.1) mmol/L Chloride 106 (98-107) mmol/L Carbon Dioxide 21 L (22-30) mmol/L BUN 17 (9-20) mg/dL Creatinine 1.03 (0.66-1.25) mg/dL Glucose 86 (74-99) mg/dL Calcium 8.6 (8.4-10.2) mg/dL AST 15 L (17-59) U/L ALT 10 (4-49) U/L Alkaline Phosphatase 62 (38-126) U/L Total Protein 5.4 L (6.3-8.2) g/dL Albumin 3.6 (3.5-5.0) g/dL Calcium panel 03/04/22 Range/Units 20:23 Calcium 8.6 (8.4-10.2) mg/dL Albumin 3.6 (3.5-5.0) g/dL Pituitary panel 03/04/22 Range/Units 20:23 Sodium 137 (137-145) mmol/L Potassium 4.4 (3.5-5.1) mmol/L Chloride 106 (98-107) mmol/L Carbon Dioxide 21 L (22-30) mmol/L BUN 17 (9-20) mg/dL Creatinine 1.03 (0.66-1.25) mg/dL Glucose 86 (74-99) mg/dL Calcium 8.6 (8.4-10.2) mg/dL Adrenal panel 03/04/22 Range/Units 20:23 Sodium 137 (137-145) mmol/L Potassium 4.4 (3.5-5.1) mmol/L Chloride 106 (98-107) mmol/L Carbon Dioxide 21 L (22-30) mmol/L BUN 17 (9-20) mg/dL Creatinine 1.03 (0.66-1.25) mg/dL Glucose 86 (74-99) mg/dL Calcium 8.6 (8.4-10.2) mg/dL Total Bilirubin <0.1 L (0.2-1.3) mg/dL AST 15 L (17-59) U/L ALT 10 (4-49) U/L Alkaline Phosphatase 62 (38-126) U/L Total Protein 5.4 L (6.3-8.2) g/dL Albumin 3.6 (3.5-5.0) g/dL Assessment and Plan (1) Recurrent incisional hernia Narrative/Plan: 61-year-old male doing well at this time. Hernia is easily reducible. Patient with heavy smoking history. No need for urgent surgery. Recommend smoking cessation. May discharge if tolerates diet. Follow-up as outpatient. Current Visit: Yes Status: Acute Code(s): K43.2 - INCISIONAL HERNIA WITHOUT OBSTRUCTION OR GANGRENE SNOMED Code(s): 068816022
--- NOTE | 2022-03-05 11:56 | P.DS ---
Providers Date of admission: 03/04/22 22:32 Expected date of discharge: 03/05/22 Attending physician: Tanner Galaes Consults: 03/04/22 22:45 Consult Physician Routine Consulting Provider: Stephani Blanco Consult Reason/Comments: medical management Do you want consulting provider notified?: Yes Primary care physician: Physician Nonstaff - Discharge Diagnosis(es) (1) Recurrent incisional hernia Refer to history and physical just dictated. Patient admitted with abdominal pain and incisional hernia. Hernia is easily reducible. Doing better today. Discharge if tolerates diet. Current Visit: Yes Status: Acute Patient Condition at Discharge: Good Plan - Discharge Summary New Discharge Prescriptions: No Action Zofran (Unknown Dose) 1 dose PO Q6H PRN PRN Reason: Nausea Multivitamins, Thera [Multivitamin (formulary)] 1 tab PO DAILY Ibuprofen [Motrin Ib] 600 mg PO Q6H PRN PRN Reason: Pain Tamsulosin HCl [Flomax] 0.4 mg PO DAILY Omeprazole 40 mg PO DAILY Calcium, Magnesium, Zinc, With Vitamin D 1 tab PO TID PRN PRN Reason: CRAMPS DULoxetine HCL [Cymbalta] 30 mg PO DAILY Acetaminophen [Tylenol 8 Hour] 650 mg PO Q4H PRN PRN Reason: Pain Thiamine [Vitamin B-1] 100 mg PO DAILY Loperamide HCl [Imodium A-D] 4 mg PO QID PRN PRN Reason: Loose Stool Nitroglycerin Sl Tabs [Nitrostat] 0.4 mg SUBLINGUAL Q5M PRN PRN Reason: Chest Pain Atorvastatin [Lipitor] 20 mg PO DAILY Aspirin 81 mg PO DAILY Apixaban [Eliquis] 5 mg PO BID #60 tab Metoprolol Tartrate [Lopressor] 50 mg PO BID 30 Days #60 tab Discharge Medication List Acetaminophen [Tylenol 8 Hour] 650 mg PO Q4H PRN 11/29/21 [History] Aspirin 81 mg PO DAILY 11/29/21 [History] Atorvastatin [Lipitor] 20 mg PO DAILY 11/29/21 [History] Calcium, Magnesium, Zinc, With Vitamin D 1 tab PO TID PRN 11/29/21 [History] DULoxetine HCL [Cymbalta] 30 mg PO DAILY 11/29/21 [History] Ibuprofen [Motrin Ib] 600 mg PO Q6H PRN 11/29/21 [History] Loperamide HCl [Imodium A-D] 4 mg PO QID PRN 11/29/21 [History] Multivitamins, Thera [Multivitamin (formulary)] 1 tab PO DAILY 11/29/21 [History] Nitroglycerin Sl Tabs [Nitrostat] 0.4 mg SUBLINGUAL Q5M PRN 11/29/21 [History] Omeprazole 40 mg PO DAILY 11/29/21 [History] Tamsulosin HCl [Flomax] 0.4 mg PO DAILY 11/29/21 [History] Thiamine [Vitamin B-1] 100 mg PO DAILY 11/29/21 [History] Zofran (Unknown Dose) 1 dose PO Q6H PRN 11/29/21 [History] Apixaban [Eliquis] 5 mg PO BID #60 tab 11/30/21 [Rx] Metoprolol Tartrate [Lopressor] 50 mg PO BID 30 Days #60 tab 12/01/21 [Rx] Follow up Appointment(s)/Referral(s): Nonstaff,Physician [Primary Care Provider] - 1 Week Tanner Galeas MD [Medical Doctor] - 4 Weeks
[2022-03-05] MEDS ORDERED: ACETAMINOPHEN TAB 325 MG TAB PO PRN (16:15)
--- NOTE | 2022-03-05 16:26 | P.PN ---
Subjective Progress Note Date: 03/05/22 Hospital course: The patient is a 61-year-old male with a PMH of COPD, Afib on Eliquis, EtOH abuse, hyperlipidemia, and hypertensio. He presented to the emergency room from [place] where he has been staying for the past 4 weeks. The patient reported that he suddenly developed upper abdominal pain and underwent full evaluation in the emergency department. He was found to have normocytic normochromic anemia with hemoglobin of 8.7 with baseline hemoglobin of 10.0. CT abdomen and pelvis in the emergency room revealed an incarcerated ventral hernia containing transverse colon. Patient was admitted under Gen. surgery team and we were consulted for medical management throughout hospitalization. Physical examination: Patient was seen and fully evaluated at the bedside this morning. Patient states previously reported that out of 10 abdominal pain is now described more as a discomfort. He denies having any nausea or vomiting or any other complaints at this time. Patient currently NPO pending evaluation by general surgery. Patient denies having any other complaints at this time. General: non toxic, no distress, appears at stated age Derm: warm, dry Head: atraumatic, normocephalic, symmetric Eyes: EOMI, no lid lag, anicteric sclera Mouth: no lip lesion, mucus membranes moist Cardiovascular: S1S2 reg, no murmur, positive posterior tibial pulse bilateral, Lungs: CTA bilateral, no rhonchi, no rales , no accessory muscle use Abdominal: soft, upper abdominal ventral hernia noted with mild diffuse tenderness, no guarding, no appreciable organomegaly Ext: no gross muscle atrophy, no edema, no contractures Neuro: CN II-XI grossly intact, no focal neuro deficits Psych: Alert, oriented, appropriate affect Assessment and plan of care: Incarcerated ventral hernia -Management per primary admitting general surgery team including DVT prophylaxis, pain management, and advancement of diet. Normocytic normochromic anemia -Check anemia panel -Suspect chronic likely secondary to alcohol abuse. Atrial fibrillation -Hold Eliquis, pending further recommendations for primary admitting Gen. surgery team. COPD -Not in acute exacerbation. Hypertension -Monitor vital signs and Continue daily medication regimen with amlodipine, lisinopril, and metoprolol. Hyperlipidemia -Continue daily medication regimen with atorvastatin 20 mg nightly. Anxiety and depression -Continue daily medication regimen with Cymbalta BPH -Continue daily medication regimen with Flomax. History of EtOH abuse -Patient reports that his last drink was 4 weeks ago as he has been at [facility] for detox, recommend continued cessation of alcohol upon discharge. We appreciate this opportunity to be involved in this patient's care. We will follow the patient with you. For any further questions, please not hesitate to contact the [facility] emergency department inpatient team. Objective - Vital Signs Vital signs: Vital Signs Temp 97.9 F 03/05/22 07:00 Pulse 76 03/05/22 07:00 Resp 17 03/05/22 07:00 BP 101/63 03/05/22 07:00 Pulse Ox 92 L 03/05/22 07:00 FiO2 Intake & Output 03/04/22 03/05/22 03/05/22 18:59 06:59 18:59 Intake Total 0 Balance 0 Weight 93.894 kg 93.894 kg Intake: Oral 0 Other: Voiding Method Toilet # Voids 3 - Labs CBC & Chem 7: 03/04/22 20:23 03/04/22 20:23 Labs: Abnormal Lab Results - Last 24 Hours (Table) 03/04/22 03/04/22 03/04/22 Range/Units 19:12 20:23 20:23 RBC 3.35 L (4.30-5.90) m/uL Hgb 8.7 L (13.0-17.5) gm/dL Hct 28.5 L (39.0-53.0) % MCHC 30.5 L (31.0-37.0) g/dL RDW 16.7 H (11.5-15.5) % Carbon Dioxide 21 L (22-30) mmol/L Total Bilirubin <0.1 L (0.2-1.3) mg/dL AST 15 L (17-59) U/L Total Protein 5.4 L (6.3-8.2) g/dL Urine Protein Trace H (Negative) Urine Ketones Trace H (Negative) Ur Leukocyte Esterase Trace H (Negative) Urine Mucus Rare H (None) /hpf
[2022-03-05] MEDS ORDERED: ATORVASTATIN 20 MG TAB PO SCH (21:00)
[2022-03-05] MEDS ORDERED: METOPROLOL TARTRATE 50 MG TAB PO SCH (21:00)
[2022-03-06] MEDS ORDERED: DULoxetine HCL 30 MG CAPSULE.DR PO SCH (09:00)
[2022-03-06] MEDS ORDERED: lisinopriL 20 MG TAB PO SCH (09:00)
[2022-03-06] MEDS ORDERED: TAMSULOSIN 0.4 MG CAP.ER.24H PO SCH (09:00)
[2022-03-06] MEDS ORDERED: amLODIPine 5 MG TAB PO SCH (09:00)
== END 2022-03-05 13:55 | disposition other institution (70) ==
LOC: EC 18:42 → 6NMEDSUR 22:32
PROVIDERS: ADMIT Surgery; ATTEND Surgery
DX: K43.0 Incisional hernia with obstruction, without gangrene (principal); I48.91 Unspecified atrial fibrillation; I10 Essential (primary) hypertension; D64.9 Anemia, unspecified; J44.9 Chronic obstructive pulmonary disease, unspecified; F10.10 Alcohol abuse, uncomplicated; E78.5 Hyperlipidemia, unspecified; N40.0 Benign prostatic hyperplasia without lower urinary tract symptoms; F32.A Depression, unspecified; F43.10 Post-traumatic stress disorder, unspecified; F41.9 Anxiety disorder, unspecified; F17.200 Nicotine dependence, unspecified, uncomplicated; Z79.01 Long term (current) use of anticoagulants; Z79.82 Long term (current) use of aspirin; Z79.899 Other long term (current) drug therapy; Z90.49 Acquired absence of other specified parts of digestive tract; Z98.890 Other specified postprocedural states; Z59.00 Homelessness unspecified; Z71.6 Tobacco abuse counseling; Z71.41 Alcohol abuse counseling and surveillance of alcoholic; Z82.5 Family history of asthma and other chronic lower respiratory diseases
CPT/HCPCS: 96376; 96361; 96374; 96375; 99285; 36415; 82747; 80053; 82607; 82728; 83540; 83550; 83605; 83690; 85025; 81001; 74176; G0378 ×2; J2270 ×2; J2405; J1170